=== PATIENT | male | born 1955 | race Caucasian/White ===

== ENCOUNTER 2017-10-28 20:59 | Inpatient (IN) | payer OTHER, SELFPAY ==
[2017-10-28 21:00] VITALS: BP 136/75; PULSE 80; RESP 17; TEMP 36.4; O2SAT 98; BMI 26.8
[2017-10-28 21:16] LABS: Bedside Glucose > 500 mg/dL (70-110)
--- NOTE | 2017-10-28 21:22 | EKG12_ITS ---
Test Reason : TACHYCARDIA Blood Pressure : / mmHG Vent. Rate : 140 BPM Atrial Rate : 141 BPM P-R Int : 000 ms QRS Dur : 096 ms QT Int : 264 ms P-R-T Axes : 000 087 175 degrees QTc Int : [address] & T wave abnormality, consider anterolateral ischemia Abnormal ECG Confirmed by KEEGAN KNIGHT, KIM ([id number]), news videotape editor JOSHUA PATEL ([id number]) on 11/01/2017 8:33:20 AM Referred By: FREDRICK Confirmed By:KIM ALLISON MD
--- NOTE | 2017-10-28 21:23 | ED.RN ---
NO OLD EKG'S IN MUSE.
--- NOTE | 2017-10-28 21:27 | ED.DCSUM_ITS ---
- ER Visit Summary Date of Service: 10/28/17 Chief Complaint: Elevated blood sugar History of Present Illness: The patient is a 61 M who reports having routine blood work drawn at work a couple weeks ago. His blood sugar returned at greater than 600. Patient states he has for the last 2 weeks try to find a doctor. He was accepted by Dr. Hammer but cannot be seen in the office for 3 more weeks. Patient reports generalized fatigue with increasing thirst over the past several months. Patient denies chest pain or shortness of breath. He denies abdominal pain. Physical Examination: Blood pressure is 136/75, temperature 97.5, heart rate 80 , respiratory rate 17, pulse ox 98% on room air. Patient sitting upright in bed no acute distress. Head neck examination reveals dry mucous membranes. Heart is tachycardic and irregular. Lung sounds are clear. Abdomen is soft and nontender. Neuro exam reveals no focal neurologic deficits with good strength and sensation throughout. Test Results: EKG is atrial flutter with a rate of 140. Lateral T-wave inversions are noted. CBC is unremarkable. Chemistry studies reveal glucose of 563 with a sodium of 131. Anion gap is 18. BUN is 21. Urinalysis shows thousand of glucose of 150 ketones. Troponin is less than 0.02. Serum acetone is negative. Hemoglobin A1c returns at 14.2. Emergency Department Course and Treatment: Patient was placed on threat monitoring analyst in the room and has variable heart rates between 140 and 160. Patient was ordered 2 L of IV fluids. 5 mg of IV Lopressor was given. Heart rate is now ranging from 80s-120. Blood pressure has been stable. Patient be given a dose of Lovenox and will be admitted. Treatment Plan: Disposition: Admit Impression: 1. New onset diabetes with hyperglycemia 2. New onset A. fib/A flutter 3. A flutter RVR This note was generated with [employer] dictation software. It may contain incorrect words, spelling, and punctuation that were not noted in review of the chart prior to signing ED Disposition - Plan for ED Patient: Chief Complaint: Hyperglycemia Referrals: [facility] Doctor,Out of [NON-STAFF] -
[2017-10-28] MEDS: 0.9% Normal Saline 1,000 ML 1000 ML IV ×2 (21:31→23:00)
[2017-10-28] MEDS: Metoprolol Tartrate 5 MG/5 ML Vial IV (21:37)
[2017-10-28 21:42] LABS: Absolute Lymphocyte Count 0.86 X10^3/ul (0.83-4.51); Absolute Neutrophil Count 5.9 X10^3/uL (2.0-7.7); Basophil# 0.02 X10^3/uL; Basophil% 0.3 % (0-1); Eosinophil# 0.03 X10^3/uL; Eosinophils% 0.4 % (0-5); Hematocrit 42.8 % (40-54); Hemoglobin 14.7 g/dl (13.0-16.5); Lymphocyte # 0.86 X10^3/ul (4.0); Lymphocyte % 11.3 % (19-41); Mean Corp Hgb Conc 34.3 g/gl (32-36); Mean Corpuscular Hgb 34.8 pg (27.0-32.0); Mean Corpuscular Volume 101.2 fL (80-94); Mean Platelet Vol. 10.1 fl (6.2-12.0); Monocyte# 0.78 X10^3/uL; Monocyte% 10.3 % (0-10); Neutrophil # 5.86 X10^3/uL (2.7-7.7); POSITIVE COUNT NO; POSITIVE DIFFERENTIAL NO; POSITIVE MORPHOLOGY NO; Platelet Count 153 K/mm3 (150-450); RBC Distribution Width CV 13.5 % (11.6-14.6); RBC Distribution Width SD 50.2 fl (35.1-43.9); Red Blood Count 4.23 M/mm3 (4.6-6.2); White Blood Count 7.6 K/mm3 (4.4-11.0)
[2017-10-28 21:44] VITALS: BP 123/79; PULSE 107; RESP 23; O2SAT 98
[2017-10-28 22:02] LABS: Hemoglobin A1c 14.2 % (4.2-6.3)
[2017-10-28 22:09] VITALS: BP 106/75; PULSE 109; RESP 22; O2SAT 98
[2017-10-28 22:22] LABS: Bacteria 0 SEEN /hpf (None Seen); Mucous, Urine 0 SEEN /hpf (<or=2+); Red Blood Cells-Urine 0 SEEN /hpf (0-5); Squamous Epithelial Cells - UA 0 SEEN /hpf (0-5); White Blood Cells 0 SEEN /hpf (0-5)
[2017-10-28 22:24] LABS: Color, Urine Yellow (Yellow); Glucose, Dipstick 1000 mg/dl (Normal); Leukocyte Esterase-Dipstick Negative /ul (Negative); Nitrite-Dipstick Negative (Negative); Occult Blood-Urine Negative /ul (Negative); Protein-Dipstick 30 mg/dl (Negative); Urine Bilirubin Dipstick Negative (Negative); Urine Clarity Sl. Cloudy (Clear); Urine Urobilinogen Normal (Normal)
[2017-10-28 22:31] LABS: Anion Gap 18 (5-15); BUN 21 mg/dL (7-18); Calcium,Total 9.2 mg/dL (8.5-10.1); Chloride 94 mmol/L (98-107); Creatinine, Serum 1.05 mg/dL (0.70-1.30); EST Glomerular Filtration Rate 76 mL/min (>60); Est Glom Filt Rate - Afr Amer 92 mL/min (>60); Estimated Creatinine Clearance 76.28 ml/min; Glucose 563 mg/dL (74-106); Potassium 4.8 mmol/L (3.5-5.1); Sodium Level 131 mmol/L (136-145)
[2017-10-28 22:39] LABS: Ketone-Dipstick 150 mg/dl (Negative)
--- NOTE | 2017-10-28 22:39 | ED.RN ---
notified Dr. Morley of ketones 150
[2017-10-28 22:46] VITALS: BP 113/81; PULSE 89; RESP 19; O2SAT 98
[2017-10-28] MEDS: Enoxaparin 100 MG/ML Syringe 80 MG SC (23:00)
[2017-10-28 23:02] VITALS: BP 117/80; PULSE 98; RESP 23; O2SAT 98
[2017-10-28 23:04] VITALS: BP 117/80; PULSE 108; RESP 22; O2SAT 99
--- NOTE | 2017-10-28 23:27 | PCM.HP.STD ---
Problem List (1) Atrial flutter with rapid ventricular response Status: Acute (2) Uncontrolled type 2 diabetes mellitus Status: Acute History of Present Illness Date of Admission: 10/28/17 Chief Complaint: Elevated blood sugar. The patient is a 61 year old M with no significant past medical history presented to the emergency room because of elevated blood sugar. Patient reported that he had blood work done around 2 weeks ago and he was found to have blood sugar of more than 600 mg/dL. He states that he has been trying to find a doctor and finally, he was accepted by Dr. Johnston but he will be seen in 3 weeks. His main complaint was generalized weakness that has been going on for almost 2 weeks, associated with poor appetite, weight loss and significant thirst and he has been urinating way more than his usual. He is not sure how much weight he lost during the last several months. He denied aggravating or relieving factors of his weakness and fatigue. He mentioned that some of his symptoms has been going on for the past several months. He denied chest pain or shortness of breath. Denied abdominal pain, nausea or vomiting. Denies fever or chills. He denied cough or sputum production. In the emergency room, he was found to be in atrial flutter and his heart rate was in the 140s, blood pressure stable condition pulse ox is 98% on 2 L. His routine blood work was remarkable for sodium of 131, bicarb is 19, blood sugar of 563, otherwise normal. His troponin was negative. His EKG revealed atrial flutter, rate was in the 140s without evidence of acute ischemic changes. His hemoglobin A1c was 14.2. His urine revealed significant glucosuria and ketones, negative for acute cystitis. His acetone level was negative. His ABG revealed pH of 7.36, PCO2 of 34 and PO2 of 84. He is being admitted for new onset type 2 diabetes mellitus with uncontrolled blood sugar as well as new onset atrial flutter with RVR. Past Medical History Allergies No Known Allergies Allergy (Verified 10/28/17 21:00) Home Medications: Ambulatory Orders Medication Instructions Recorded NK [NK] 10/28/17 Surgical History: no surgical history Psychiatric History: No pertinent psych hx Lives: With Family Smoking Status: Current every day smoker Tobacco Use: Cigarettes Alcohol: Rare Drugs: None - *Family History Maternal History Items: No pertinent history Paternal History Items: No pertinent history Review of Systems Constitutional: Reports: Anorexia, Weakness, Weight Change, Fatigue, - - Weight loss.. Denies: Chills, Fever Eyes: Denies: Blurred vision, Double vision, Drainage, Redness HEENT: Denies: Difficulty Hearing, Ear Pain, Eye Pain, Nasal Congestion, Sore Throat Cardiovascular: Denies: Chest Pain, Chest Pressure, Chest Tightness, Palpitations, Syncope Respiratory: Denies: Cough, Pleuritic Pain, Shortness of Breath, Sputum production, Wheezing Gastrointestinal: Denies: Abdominal Pain, Constipation, Diarrhea, Nausea, Vomiting Genitourinary: Reports: Frequency, Nocturia. Denies: Dysuria, Hematuria Musculoskeletal: Denies: Arm Pain, Back Pain, Foot Pain Skin: Reports: Dryness. Denies: Rash Neurological: Denies: Balance problems, Double vision, Change in Speech, Slurred speech, Confusion, Headaches, Incoordination, Numbness Psychiatric: Denies: Anxiety, Depression Endocrine: Denies: Change in Body Habitus, Heat/ Cold Intolerance, Polydipsia VTE Information - Inpt Only VTE Present on Admission: No VTE Mechan Device Prophylaxis: None VTE Pharm Prophylaxis ordered?: Yes Patient Problems: Active and Suspected Problems Atrial flutter with rapid ventricular response (Acute) Uncontrolled type 2 diabetes mellitus (Acute) - Physical Exam General: Alert, Oriented x3, Cooperative, No apparent distress HEENT: Atraumatic, PERRLA, EOMI Oral: No Gingival or Mucosal Lesions/ Ulcerations, Dry Mucosa Neck: Supple, No JVD, Negative Carotid Bruits, Trachea Midline, Thyroid Normal Size and Texture Lungs: Clear to auscultation, No rhonchi, No wheeze, No rales, Diminished Cardiovascular: Normal S1, Normal S2, No murmurs, PMI Normal, Irregular Rate, Tachycardic Abdomen: Bowel Sounds Present, Soft, Non Tender, Non-Distended, No Hepato-splenomegaly Extremities: No clubbing, No cyanosis, No edema Skin: No rashes, No breakdown Lymphatic: No Cervical, Supraclavicular, or Inguinal Adenopathy Neurological: Cranial nerves II-XII grossly intact, Motor Exam 5/5 strength throughout Psych/Mental Status: Normal Affect, Appropriate, Alert and oriented to time, place, person, mood and affect Vital Signs Temp Pulse Resp BP Pulse Ox 97.5 F L 108 H 22 H 117/80 99 10/28/17 21:00 10/28/17 23:04 10/28/17 23:04 10/28/17 23:04 10/28/17 23:04 Laboratory Tests 10/28/17 10/28/17 10/28/17 Range/Units 22:10 21:30 21:30 WBC (4.4-11.0) K/mm3 RBC (4.6-6.2) M/mm3 Hgb (13.0-16.5) g/dl Hct (40-54) % MCV (80-94) fL MCH (27.0-32.0) pg MCHC (32-36) g/gl RDW (11.6-14.6) % RDW Differential (35.1-43.9) fl Plt Count (150-450) K/mm3 MPV (6.2-12.0) fl Immature Gran % (Auto) (0.0-0.9) % Neut % (Auto) (47-70) % Lymph % (Auto) (19-41) % [place] % (Auto) (0-10) % Eos % (Auto) (0-5) % Baso % (Auto) (0-1) % Absolute Neuts (auto) (2.0-7.7) X10^3/uL Absolute Lymphs (auto) (0.83-4.51) X10^3/ul Total Counted Sodium (136-145) mmol/L Potassium (3.5-5.1) mmol/L Chloride (98-107) mmol/L Carbon Dioxide (21.0-32.0) mmol/L Anion Gap (5-15) BUN (7-18) mg/dL Creatinine (0.70-1.30) mg/dL Estim Creat Clear Calc ml/min Est GFR (MDRD) Af Amer (>60) mL/min Est GFR (MDRD) Non-Af (>60) mL/min BUN/Creatinine Ratio (10-20) RATIO Glucose (74-106) mg/dL Hemoglobin A1c 14.2 H (4.2-6.3) % Calcium (8.5-10.1) mg/dL Troponin I (<0.06) ng/mL Urine Color Yellow (Yellow) Urine Clarity Sl. Cloudy (Clear) Urine pH 6.0 (5.0 - 8.0) Ur Specific [place] 1.020 (1.002-1.030) Urine Protein 30 H (Negative) mg/dl Urine Glucose (UA) 1000 H (Normal) mg/dl Urine Ketones 150 H (Negative) mg/dl Urine Occult Blood Negative (Negative) /ul Urine Nitrite Negative (Negative) Urine Bilirubin Negative (Negative) mg/dL Urine Urobilinogen Normal (Normal) mg/dl Ur Leukocyte Esterase Negative (Negative) /ul Urine RBC 0 SEEN (0-5) /hpf Urine WBC 0 SEEN (0-5) /hpf Ur Squamous Epith Cells 0 SEEN (0-5) /hpf Urine Bacteria 0 SEEN (None Seen) /hpf Urine Mucus 0 SEEN (<or=2+) /hpf Acetone Level NEGATIVE (NEG) POC Glucose (70-110) mg/dL 10/28/17 10/28/17 10/28/17 Range/Units 21:30 21:30 21:06 WBC 7.6 (4.4-11.0) K/mm3 RBC 4.23 L (4.6-6.2) M/mm3 Hgb 14.7 (13.0-16.5) g/dl Hct 42.8 (40-54) % MCV 101.2 H (80-94) fL MCH 34.8 H (27.0-32.0) pg MCHC 34.3 (32-36) g/gl RDW 13.5 (11.6-14.6) % RDW Differential 50.2 H (35.1-43.9) fl Plt Count 153 (150-450) K/mm3 MPV 10.1 (6.2-12.0) fl Immature Gran % (Auto) 0.700 (0.0-0.9) % Neut % (Auto) 77.0 H (47-70) % Lymph % (Auto) 11.3 L (19-41) % [place] % (Auto) 10.3 H (0-10) % Eos % (Auto) 0.4 (0-5) % Baso % (Auto) 0.3 (0-1) % Absolute Neuts (auto) 5.9 (2.0-7.7) X10^3/uL Absolute Lymphs (auto) 0.86 (0.83-4.51) X10^3/ul Total Counted Not Reportable Sodium 131 L (136-145) mmol/L Potassium 4.8 (3.5-5.1) mmol/L Chloride 94 L (98-107) mmol/L Carbon Dioxide 19.0 L (21.0-32.0) mmol/L Anion Gap 18 H (5-15) BUN 21 H (7-18) mg/dL Creatinine 1.05 (0.70-1.30) mg/dL Estim Creat Clear Calc 76.28 ml/min Est GFR (MDRD) Af Amer 92 (>60) mL/min Est GFR (MDRD) Non-Af 76 (>60) mL/min BUN/Creatinine Ratio 20.0 (10-20) RATIO Glucose 563 H* (74-106) mg/dL Hemoglobin A1c (4.2-6.3) % Calcium 9.2 (8.5-10.1) mg/dL Troponin I < 0.02 (<0.06) ng/mL Urine Color (Yellow) Urine Clarity (Clear) Urine pH (5.0 - 8.0) Ur Specific [place] (1.002-1.030) Urine Protein (Negative) mg/dl Urine Glucose (UA) (Normal) mg/dl Urine Ketones (Negative) mg/dl Urine Occult Blood (Negative) /ul Urine Nitrite (Negative) Urine Bilirubin (Negative) mg/dL Urine Urobilinogen (Normal) mg/dl Ur Leukocyte Esterase (Negative) /ul Urine RBC (0-5) /hpf Urine WBC (0-5) /hpf Ur Squamous Epith Cells (0-5) /hpf Urine Bacteria (None Seen) /hpf Urine Mucus (<or=2+) /hpf Acetone Level (NEG) POC Glucose > 500 H* (70-110) mg/dL Assessment/Plan Active and Suspected Problems Atrial flutter with rapid ventricular response (Acute) Uncontrolled type 2 diabetes mellitus (Acute) This is a 61 years old male patient presented to the emergency room because of elevated blood sugar in addition to symptoms of weakness, thirst, polyuria and weight loss that has been going on for several months and he was found to have highly elevated blood sugar as well as atrial flutter with RVR. #1 newly diagnosed type 2 diabetes mellitus/hyperglycemia: Without evidence of acute DKA. Blood sugar has been more than 500. His serum bicarbonate was 19, acetone was negative. ABG revealed normal pH. At this time, no evidence of acute DKA. Plan: Admit to PCU, cardiac monitoring, ADA diet, Accu-Cheks every 6 hours, start Levemir insulin 10 units twice daily, start glimepiride, insulin sliding scale, nutrition consult for diabetic education PT OT evaluation and treatment. #2 new onset atrial flutter with RVR: Initially, heart rate has been in the 140s. He received 1 dose of IV metoprolol. Rate came down to 90s but has been fluctuating up to 130s. Blood pressure stable. Troponin is negative. His KGU2-BV0-BPFa score is 1, he is at low to moderate risk for stroke and he could be treated either way with either antiplatelets or anticoagulants. Patient denies any cardiac history. Plan: Start IV Cardizem drip, 2D echocardiogram, TSH, check serum magnesium, cardiology consult, full dose aspirin 325 mg p.o. daily. #3 hyponatremia: This is likely pseudohyponatremia secondary to hyperglycemia. Corrected sodium for glucose is 138 mg/dL. Expect sodium to correct with correction of hyperglycemia. #4 DVT prophylaxis: Subcu Lovenox. This note was generated with [employer] dictation software. It may contain incorrect words, spelling, and punctuation that were not noted in checking the note before signing. Code Visit Inpatient E&M: 37743 Init Hosp L3
[2017-10-28 23:46] LABS: Allen Test POS; Base Excess -6 mmol/L (-2 to +2); Bicarbonate 19.3 mmol/L (22-26); Blood Gas Specimen Type ART; O2 Delivery Device Room Air; PO2 84 mmHG (75-100); SITE L Radial; SO2 96 % (95-99); Time Given 2337; Total Carbon Dioxide 20 mmol/L; pCO2 34.5 mmHg (35-45); pH 7.36 (7.35-7.45)
--- NOTE | 2017-10-28 23:54 | ECHOD_ITS ---
Reason For Study: Afib, Aflutter Procedure This was a 2D Doppler, Color Flow transthoracic echocardiogram. Exam performed portable in patient room. Left Ventricle Normal LV size. Moderately severe global left ventricular systolic dysfunction. The estimated ejection fraction is 30 %. No regional wall motion abnormalities noted. There is moderate to severe global hypokinesis of the left ventricle. Right Ventricle Normal RV size. Normal systolic function. Atria The left atrium is severely enlarged. The right atrium is moderately enlarged. Mitral Valve Normal mitral valve. Mild (1+) mitral valve insufficiency. Tricuspid Valve Normal tricuspid valve. Mild tricuspid valve insufficiency. Aortic Valve Trisinus/trileaflet aortic valve. Mild focal aortic valve calcification. Pulmonic Valve Normal pulmonic valve. Great Vessels Normal aortic root. The pulmonary artery is normal size. Normal inferior vena cava. Pericardium/Pleural No pericardial effusion. MMode/2D Measurements & Calculations LVIDd: 4.9 cm IVSd: 1.1 cm Ao root diam: 3.1 cm LVIDs: 4.0 cm LVPWd: 0.93 cm LA dimension: 5.4 cm RVDd: 3.7 cm FS: 18.3 % LAV(MOD-bp): 109.7 ml EDV(MOD-sp4): 136.8 ml SV(MOD-sp4): 65.4 ml LAV(MOD-bp) Indexed: 54.2 ml/m2 ESV(MOD-sp4): 71.4 ml LAV(MOD-sp2): 102.6 ml EF(MOD-sp4): 47.8 % LAV(MOD-sp4): 101.1 ml LA A4 area: 31.2 cm2 RA A4 area: 23.8 cm2 Doppler Measurements & Calculations MV E max tripp: 72.8 cm/sec Lat Peak E' Tripp: 13.5 cm/sec Med Peak E' Tripp: 8.6 cm/sec E/E' lat: 5.4 E/E' med: 8.4 Ao V2 max: 160.1 cm/sec LV V1 max: 112.6 cm/sec PA V2 max: 66.9 cm/sec Ao max P.3 mmHg LV V1 max P.1 mmHg Ao V2 mean: 124.5 cm/sec Ao mean P.8 mmHg Ao V2 VTI: 30.7 cm TR max tripp: 191.7 cm/sec TR max P.7 mmHg Interpretation Summary Normal LV size. Moderately severe global left ventricular systolic dysfunction. The estimated ejection fraction is 30 %. The left atrium is severely enlarged. The right atrium is moderately enlarged. Structurally normal valves. Ordering Physician: Aidan Marrero Referring Physician: Lanre Hammer Performed By: Clare Rodriguez, DAYANA, RVT
[2017-10-29] VITALS (37 sets, daily range): BP systolic 90–133; BP diastolic 7–88; PULSE 61–140; RESP 16–23; TEMP 36.6–37.1; O2SAT 90–99; BMI 25.0; BMI 25.1
[2017-10-29 00:43] LABS: AST(SGOT) 36 U/L (15-37); Alanine Aminotransfer ALT/SGPT 59 U/L (16-61); Albumin, Serum 3.5 g/dL (3.2-5.0); Alkaline Phosphatase 99 U/L (45-117); Bilirubin, Direct 0.17 mg/dL (0.00-0.30); Globulin 3.2 g/dL (2.2-4.2); Protein, Total 6.7 g/dL (6.4-8.2); Thyroid Stim Hormone (TSH) 4.19 uIU/mL (0.358-3.74)
[2017-10-29] MEDS: 0.9% Normal Saline 1,000 ML 100 ML IV ×3 (00:50→20:26)
[2017-10-29 05:46] LABS: Bedside Glucose 379 mg/dL (70-110)
[2017-10-29] MEDS: Enoxaparin 40 MG/0.4 ML Syringe SC (05:56)
[2017-10-29 06:06] LABS: Bedside Glucose 285 mg/dL (70-110)
[2017-10-29 07:50] LABS: Anion Gap 16 (5-15); BUN 10 mg/dL (7-18); Calcium,Total 7.6 mg/dL (8.5-10.1); Chloride 101 mmol/L (98-107); Cholesterol 124 mg/dL (200); Creatinine, Serum 0.71 mg/dL (0.70-1.30); EST Glomerular Filtration Rate 119 mL/min (>60); Est Glom Filt Rate - Afr Amer 144 mL/min (>60); Estimated Creatinine Clearance 112.81 ml/min; Glucose 279 mg/dL (74-106); High Density Lipoprotein 40 mg/dL; Potassium 3.6 mmol/L (3.5-5.1); Sodium Level 138 mmol/L (136-145); Triglycerides 131 mg/dL; Very Low Density Lipoprotein 26 mg/dL (5-40)
[2017-10-29] MEDS: Glimepiride 4 MG Tablet PO (09:00)
[2017-10-29] MEDS: Aspirin 325 MG Tablet PO (09:02)
--- NOTE | 2017-10-29 09:50 | PN_ITS ---
Patient Problems: Active and Suspected Problems Atrial flutter with rapid ventricular response (Acute) Uncontrolled type 2 diabetes mellitus (Acute) Subjective: Patient was seen and examined. Denies any active complains. On cardizem drip, HR still in the 100s. Admitted with hyperglycemia; newly diagnosed DM and Atrial flutter with RVR. Denies any fever or chills or SOB. Objective: Physical Exam General: Alert, Oriented x3, Cooperative, No apparent distress, not pale, not jaundiced, well hydrated HEENT: Atraumatic, PERRLA, EOMI Oral: No Gingival or Mucosal Lesions/ Ulcerations, moist oral mMucosa Neck: Supple, No JVD, Negative Carotid Bruits, Trachea Midline, Thyroid Normal Size and Texture Lungs: Clear to auscultation, No rhonchi, No wheeze, No rales, Diminished Cardiovascular: Normal S1, Normal S2, No murmurs, PMI Normal, Irregular Rate, Tachycardic Abdomen: Bowel Sounds Present, Soft, Non Tender, Non-Distended, No Hepato- splenomegaly Extremities: No clubbing, No cyanosis, No edema Skin: No rashes, No breakdown Lymphatic: No Cervical, Supraclavicular, or Inguinal Adenopathy Neurological: Cranial nerves II-XII grossly intact, Motor Exam 5/5 strength throughout Psych/Mental Status: Normal Affect, Appropriate, Alert and oriented to time, place, person, mood and affect Vitals/I&O's: Vital Signs Temp Pulse Resp BP Pulse Ox 97.8 F 140 H 18 113/73 93 10/29/17 09:00 10/29/17 09:39 10/29/17 09:00 10/29/17 09:00 10/29/17 09:00 Oxygen Delivery Method Room Air Weight: 79.3 kg Body Mass Index (BMI) 25.0 Intake and Output for Last 24 Hours 10/27/17 10/28/17 10/29/17 23:59 23:59 23:59 Intake Total 1490 / 1490 Output Total 1350 / 1350 Balance 140 / 140 Laboratory Results 10/28/17 23:38: Specimen Type ART, Sample Site L Radial, pH 7.36, Bicarbonate Actual 19.3 L, POC Total CO2 20, Base Excess -6 L, O2 Saturation 96, ABG pCO2 34.5 L, ABG pO2 84, Abdulaziz Test POS, O2 Delivery Device Room Air, Blood Gas Notified Whom ED MD, Blood Gas Notified Time 2997 10/29/17 00:56: POC Glucose 379 H 10/29/17 01:20: Troponin I < 0.02 10/29/17 05:20: Sodium 138, Potassium 3.6, Chloride 101, Carbon Dioxide 21.0, Anion Gap 16 H, BUN 10, Creatinine 0.71, Estim Creat Clear Calc 112.81, Est GFR (MDRD) Af Amer 144, Est GFR (MDRD) Non-Af 119, BUN/Creatinine Ratio 14.0, Glucose 279 H, Calcium 7.6 L, Triglycerides 131, Cholesterol 124, LDL Cholesterol 58, VLDL Cholesterol 26, HDL Cholesterol 40 10/29/17 05:20: Troponin I < 0.02 10/29/17 05:50: POC Glucose 285 H Current Medications Acetaminophen (Tylenol) 650 mg PO Q6H PRN PRN PRN Reason: Mild Pain (scale 0-3)/T>100.7 Aspirin (Aspirin) 325 mg PO DAILY@0800 [facility] Last Admin: 10/29/17 09:02 Dose: 325 mg Dextrose (D50w Syringe) 0 gm IV X1 PRN; Protocol PRN Reason: Hypoglycemia Docusate Sodium (Colace) 200 mg PO BID PRN PRN PRN Reason: Constipation Enoxaparin Sodium (Lovenox) 40 mg SC DAILY@0600 [facility] Last Admin: 10/29/17 05:56 Dose: 40 mg Glimepiride (Amaryl) 4 mg PO DAILY@0800 [facility] Last Admin: 10/29/17 09:00 Dose: 4 mg Glucagon () 1 mg IM .X1 PRN PRN Reason: Hypoglycemia Sodium Chloride () 1,000 mls @ 100 mls/hr IV .Q10H [facility] Last Admin: 10/29/17 09:45 Dose: 100 mls/hr Diltiazem HCl 125 mg/ Dextrose 125 mls @ 5 mls/hr CONT INF .Q25H [facility] PRN Reason: 5 MG/HR Last Admin: 10/29/17 00:31 Dose: 5 mls/hr Insulin Aspart (Novolog Flexpen (Bkc)) 0 units SC Q6 [facility] PRN Reason: Protocol Last Admin: 10/29/17 05:55 Dose: 6 units Insulin Detemir (Levemir (Bkc)) 10 units SC BID [facility] Last Admin: 10/29/17 09:42 Dose: 10 units Ondansetron HCl (Zofran) 4 mg IV Q8H PRN PRN PRN Reason: Nausea Sodium Chloride () 5 - 30 ml IV UD PRN PRN Reason: SALINE FLUSH Zolpidem Tartrate (Ambien (Generic)) 5 mg PO QHS PRN PRN PRN Reason: INSOMNIA Medical Necessity - Tobacco Use Smoking Status: Current every day smoker Tobacco Use: Cigarettes Assessment/Plan Active and Suspected Problems Atrial flutter with rapid ventricular response (Acute) Uncontrolled type 2 diabetes mellitus (Acute) 61 years old male admitted on 10/28/17 with weakness, thirst, polyuria and weight loss that has been going on for several months and he was found to have highly elevated blood sugar, newly diagnosed DM, and atrial flutter with RVR. 1. Newly diagnosed type 2 diabetes mellitus, HbA1c 14.2, IV fluids, started on Levemir 10 units twice daily with insulin sliding scale, will continue to monitor blood sugars with Accu-Cheks before meals at bedtime, repeat labs in a.m. 2. New onset atrial flutter with RVR, not rate controlled, on Cardizem drip, cardiology consulted, initiate treatment of her low, 2D echo done, would wean off Cardizem drip, Eliquis started. 3. Hypothyroidism, TSH elevated at 4.19, will check free T4, FT3 4. Hyponatremia, pseudohyponatremia secondary to hyperglycemia, resolved. 5. Elevated MCV, likely related to TSH, will check folic acid, Vitamin b12 6. DVT prophylaxis - Lovenox SC. Code Visit Inpatient E&M: 01173 Subs Hosp L3
--- NOTE | 2017-10-29 11:00 | CASEMGMT ---
RN AISHA Face to Face with patient for initial transition planning/care coordination assessment. RN CM introduced self and role at [facility]. Patient sitting in chair, alert and oriented. Patient willing to participate in assessment and is able to answer all questions appropriately. Care providers, pharmacy, and demographics verified. See link attached. Patient wishes to discharge home, denies need for home health at this time. Patient states that he does not take any medications at home. Patient states he has no further needs or concerns at this time. SW referral made to Jae Stahl in regards to new diagnosis of diabetes. CM to follow for discharge planning needs that may arise. Disposition Plan: Patient to discharge home with follow-up plans in place.
[2017-10-29 11:46] LABS: Bedside Glucose 325 mg/dL (70-110)
--- NOTE | 2017-10-29 11:58 | CON.PCM_ITS ---
Reason for Consult Date of Consultation: 10/29/17 Reason for Consultation: Irregular heartbeat. History of Present Illness: The patient is a 61 year old M with no significant past medical history presented to the emergency room because of elevated blood sugar. Patient reported that he had blood work done around 2 weeks ago and he was found to have blood sugar of more than 600 mg/dL. He states that he has been trying to find a doctor and finally, he was accepted by Dr. Johnston but he will be seen in 3 weeks. His main complaint was generalized weakness that has been going on for almost 2 weeks, associated with poor appetite, weight loss and significant thirst and he has been urinating way more than his usual. He is not sure how much weight he lost during the last several months. He denied aggravating or relieving factors of his weakness and fatigue. He mentioned that some of his symptoms has been going on for the past several months. He denied chest pain or shortness of breath. Denied abdominal pain, nausea or vomiting. Denies fever or chills. He denied cough or sputum production. In the emergency room, he was found to be in atrial flutter and his heart rate was in the 140s, blood pressure stable condition pulse ox is 98% on 2 L. His routine blood work was remarkable for sodium of 131, bicarb is 19, blood sugar of 563, otherwise normal. His troponin was negative. His EKG revealed atrial flutter, rate was in the 140s without evidence of acute ischemic changes. His hemoglobin A1c was 14.2. He was admitted to the telemetry unit and cardiology was consulted due to his elevated heart rate. He denies any dizziness or diaphoresis no near syncope or syncope and no palpitations. Past Medical History Allergies/Adverse Reactions: Allergies No Known Allergies Allergy (Verified 10/28/17 21:00) Home Medications: Ambulatory Orders Medication Instructions Recorded Naproxen Sodium [Aleve] 220 mg PO 10/29/17 Surgical History: no surgical history Psychiatric History: No pertinent psych hx - *Family History Maternal History Items: No pertinent history Paternal History Items: No pertinent history Lives: With Family Smoking Status: Current every day smoker Tobacco Use: Cigarettes Alcohol: Rare Drugs: None Review of Systems - Review of Systems General: Reports: Fatigue, Weakness. Denies: Fever, Night Sweats Cardiovascular: Denies: Chest Discomfort, Shortness of Breath, Orthopnea, PND, Peripheral Edema, Palpitations, Lightheadedness, Dizziness, Near Syncope, Syncope Respiratory: Denies: Cough, Sputum Production, Hemoptysis Gastrointestinal: Denies: Hematemesis, Hematochezia, Melena Genitourinary: Denies: Dysuria, Hematuria Skin: Denies: Rash Subjectve: Pleasant gentleman in no apparent distress Objective: Vital Signs Temp Pulse Resp BP Pulse Ox 98.1 F 100 22 H 115/61 96 10/29/17 11:00 10/29/17 11:09 10/29/17 11:00 10/29/17 11:00 10/29/17 11:00 Oxygen Delivery Method Room Air Weight: 174 lb 13.225 oz Body Mass Index (BMI) 25.0 Intake and Output for Last 24 Hours 10/27/17 10/28/17 10/29/17 23:59 23:59 23:59 Intake Total 2840 / 2840 Output Total 1775 / 1775 Balance 1065 / 1065 General: Awake, Alert, Oriented x 3 HEENT: PERRL, EOMI, Sclera Non Icteric Neck: Supple, Good ROM, No Lymph Node Enlargement Lungs: Clear to auscultation Cardiovascular: Irregular Rhythm, Normal S1, Normal S2, No Murmurs, No Rubs, No Gallops Vascular: No Carotid Bruits, Normal Femoral Pulses, Normal Radial Pulses, Normal Dorsalis Pedal Pulse, Normal Posterior Tibial Pulses Abdomen: Bowel Sounds Present, Soft, Non Tender, No HSM, No Organomegaly Extremities: No Cyanosis, No Clubbing, No edema Neurological: No Focal Motor or Sensory Deficit 10/28/17 23:38: pH 7.36, Bicarbonate Actual 19.3 L, POC Total CO2 20, Base Excess -6 L, O2 Saturation 96, ABG pCO2 34.5 L, ABG pO2 84, Abdulaziz Test POS 10/29/17 01:20: Troponin I < 0.02 10/29/17 05:20: Sodium 138, Potassium 3.6, Chloride 101, Carbon Dioxide 21.0, Anion Gap 16 H, BUN 10, Creatinine 0.71, Est GFR (MDRD) Af Amer 144, Est GFR ( MDRD) Non-Af 119, BUN/Creatinine Ratio 14.0, Glucose 279 H, Calcium 7.6 L, Triglycerides 131, Cholesterol 124, LDL Cholesterol 58, VLDL Cholesterol 26, HDL Cholesterol 40 10/29/17 05:20: Troponin I < 0.02 Rhythm: EKG: Atrial fibrillation flutter with a rapid ventricular response rate Assessment/Plan 1. Atrial flutter with rapid ventricular response rate-duration unknown He presents with severe hyperglycemia and is noted to have atrial fibrillation flutter with rapid ventricular response rate. He does have a chads vas score of 1. My recommendation however at the present time would be for him to be anticoagulated obtain an echocardiogram to assess his left ventricular function. Hopefully after his blood sugar is under control and his heart rate is under control he should be given an attempt at DC cardioversion. It is for this reason that I would anticoagulate him. I will discuss this with him further over the next 24 hours. Oral metoprolol can be initiated I will wean off the intravenous Cardizem We will read and report echocardiogram Thank you for allowing me to participate in the care of your patient. Please don't hesitate to call if any issues arise
--- NOTE | 2017-10-29 12:12 | CASEMGMT ---
SW met w/pt briefly in regard to new diagnosis of diabetes, offered support. SW encouraged pt to ask a lot of questions if he is not certain of something. Pt at this time seems to be managing, did make pt aware if he does find himself frustrated or upset about the new diagnosis, counseling can help. Pt states understanding. Otherwise, no further social service needs anticipated. DAVID Hernandez, CVICU NURSE
[2017-10-29] MEDS: Metoprolol Tartrate 50 MG Tablet PO ×2 (13:56→22:08)
[2017-10-29 15:57] LABS: Free T3 1.2 pg/mL (2.18-3.98); T4 Free Direct 0.86 ng/dL (0.76-1.46)
[2017-10-29 16:25] LABS: Bedside Glucose 235 mg/dL (70-110)
[2017-10-29] MEDS: APIXABAN 5 MG TABLET PO (22:08)
[2017-10-29 23:05] LABS: Bedside Glucose 281 mg/dL (70-110)
[2017-10-30] VITALS (16 sets, daily range): BP systolic 104–135; BP diastolic 68–74; PULSE 77–122; RESP 16–18; TEMP 36.6–36.8; O2SAT 91–98
[2017-10-30 06:13] LABS: Absolute Lymphocyte Count 1.35 X10^3/ul (0.83-4.51); Absolute Neutrophil Count 3.9 X10^3/uL (2.0-7.7); Basophil# 0.02 X10^3/uL; Basophil% 0.3 % (0-1); Eosinophil# 0.09 X10^3/uL; Eosinophils% 1.5 % (0-5); Hematocrit 42.1 % (40-54); Hemoglobin 14.6 g/dl (13.0-16.5); Lymphocyte # 1.35 X10^3/ul (4.0); Lymphocyte % 22.9 % (19-41); Mean Corp Hgb Conc 34.7 g/gl (32-36); Mean Corpuscular Hgb 34.5 pg (27.0-32.0); Mean Corpuscular Volume 99.5 fL (80-94); Mean Platelet Vol. 10.1 fl (6.2-12.0); Monocyte# 0.53 X10^3/uL; Neutrophil # 3.86 X10^3/uL (2.7-7.7); Neutrophil % 65.6 % (47-70); Platelet Count 142 K/mm3 (150-450); RBC Distribution Width SD 46.6 fl (35.1-43.9); Red Blood Count 4.23 M/mm3 (4.6-6.2); White Blood Count 5.9 K/mm3 (4.4-11.0)
[2017-10-30 06:14] LABS: POSITIVE COUNT NO; POSITIVE DIFFERENTIAL NO; POSITIVE MORPHOLOGY NO
[2017-10-30 06:35] LABS: Anion Gap 9 (5-15); BUN 5 mg/dL (7-18); BUN/Creat Ratio 9.9 RATIO (10-20); Calcium,Total 7.6 mg/dL (8.5-10.1); Chloride 102 mmol/L (98-107); EST Glomerular Filtration Rate 178 mL/min (>60); Est Glom Filt Rate - Afr Amer 215 mL/min (>60); Estimated Creatinine Clearance 158.17 ml/min; Glucose 109 mg/dL (74-106); Sodium Level 141 mmol/L (136-145)
[2017-10-30 07:00] LABS: Bedside Glucose 104 mg/dL (70-110)
[2017-10-30] MEDS: Metoprolol Tartrate 50 MG Tablet PO (08:18)
[2017-10-30] MEDS: APIXABAN 5 MG TABLET PO ×2 (08:19→21:28)
[2017-10-30] MEDS: Glimepiride 4 MG Tablet PO (08:19)
--- NOTE | 2017-10-30 09:15 | ECHOTEE_ITS ---
Reason For Study: Afib, Aflutter Medication Cetacaine Topical [place] given X3 orally. Versed 1 mg given slow IVP. Fentanyl 50 mcg given slow IVP. Performed a rapid injection of agitated mix of 9 cc saline and 1cc air to assess for atrial septal defect. Left Ventricle Normal LV size. Moderately severe global left ventricular systolic dysfunction. The estimated ejection fraction is 20 %. There is severe global hypokinesis of the left ventricle. Right Ventricle Normal RV size. Normal systolic function. Atria Bubble contrast study negative for right to left interatrial shunt. The left atrium is severely enlarged. There is severe sponatenous contrast in the left atrium. Appendage thrombus of the left atrium. The right atrium is mildly enlarged. Mitral Valve Normal mitral valve. Mild (1+) eccentric mitral valve insufficiency. Tricuspid Valve Normal tricuspid valve. Aortic Valve Normal aortic valve. Trisinus/trileaflet aortic valve. Pulmonic Valve Normal pulmonic valve. Vessels Normal aortic root. The pulmonary artery is normal size. Pericardium No pericardial effusion. Interpretation Summary Normal LV size. Moderately severe global left ventricular systolic dysfunction. The estimated ejection fraction is 20 %. There is severe global hypokinesis of the left ventricle. The left atrium is severely enlarged. There is severe sponatenous contrast in the left atrium. Appendage thrombus of the left atrium. Ordering Physician: Lenny Rao Referring Physician: Lanre Hammer Performed By: Clare Rodriguez, RDCS, RVT
--- NOTE | 2017-10-30 09:16 | PCM.PN.CARD ---
Subjectve: Patient seen and evaluated. Remains asymptomatic doing well otherwise. Objective: Vital Signs Temp Pulse Resp BP Pulse Ox 98.0 F 107 H 18 115/70 95 10/30/17 08:17 10/30/17 08:18 10/30/17 08:29 10/30/17 08:17 10/30/17 08:17 Oxygen Delivery Method Room Air Weight: 174 lb 13.225 oz Body Mass Index (BMI) 25.0 Intake and Output for Last 24 Hours 10/28/17 10/29/17 10/30/17 23:59 23:59 23:59 Intake Total 3704 / 3704 1893.2 / 1893.2 Output Total 2275 / 2275 2650 / 2650 Balance 1429 / 1429 -756.8 / -756.8 General: Awake, Alert, Oriented x 3 HEENT: PERRL, EOMI, Sclera Non Icteric Neck: Supple, Good ROM, No Lymph Node Enlargement Lungs: Clear to auscultation Cardiovascular: Regular Rhythm, Normal S1, Normal S2, No Murmurs, No Rubs, No Gallops Vascular: No Carotid Bruits, Normal Femoral Pulses, Normal Radial Pulses, Normal Dorsalis Pedal Pulse, Normal Posterior Tibial Pulses Abdomen: Bowel Sounds Present, Soft, Non Tender, No HSM, No Organomegaly Extremities: No Cyanosis, No Clubbing, No edema Neurological: No Focal Motor or Sensory Deficit 10/29/17 11:35: Troponin I < 0.02 10/30/17 05:50: WBC 5.9, RBC 4.23 L, Hgb 14.6, Hct 42.1, MCV 99.5 H, MCH 34.5 H, MCHC 34.7, RDW 13.0, RDW Differential 46.6 H, Plt Count 142 L, MPV 10.1, Immature Gran % (Auto) 0.700, Neut % (Auto) 65.6, Lymph % (Auto) 22.9, [place] % (Auto) 9.0, Eos % (Auto) 1.5, Baso % (Auto) 0.3, Absolute Neuts (auto) 3.9, Total Counted Not Reportable 10/30/17 05:50: Sodium 141, Potassium 3.0 L, Chloride 102, Carbon Dioxide 30.0, Anion Gap 9, BUN 5 L, Creatinine 0.50 L, Est GFR (MDRD) Af Amer 215, Est GFR (MDRD) Non-Af 178, BUN/Creatinine Ratio 9.9 L, Glucose 109 H, Calcium 7.6 L Rhythm: EKG: ECHO: Stress Test: Cardiac Cath: PCI: CT Surgery: Holter monitor: EPS: PPM: CXR: Chest CT Scan: Medical Necessity - Tobacco Use Smoking Status: Current every day smoker Tobacco Use: Cigarettes Assessment/Plan 1. Atrial flutter with rapid ventricular response rate-duration unknown He presents with severe hyperglycemia and is noted to have atrial fibrillation flutter with rapid ventricular response rate. He does have a chads vas score of 1. My recommendation however at the present time would be for him to be anticoagulated obtain an trans-echocardiogram to assess his left atrial appendage. His echocardiogram had demonstrated globally reduced left ventricular systolic function. I would recommend DC cardioversion if his ASHIA is without any appendage problems and then reecho him in a few weeks. He will continue on the beta-maciej. I have discussed the above with him as well as the hospitalist and will be scheduled in a.m. Thank you for allowing me to participate in the care of your patient. Please don't hesitate to call if any issues arise
--- NOTE | 2017-10-30 09:19 | PN.CARD_ITS ---
Subjectve: Patient seen and evaluated. Remains asymptomatic doing well otherwise. Objective: Vital Signs Temp Pulse Resp BP Pulse Ox 98.0 F 107 H 18 115/70 95 10/30/17 08:17 10/30/17 08:18 10/30/17 08:29 10/30/17 08:17 10/30/17 08:17 Oxygen Delivery Method Room Air Weight: 174 lb 13.225 oz Body Mass Index (BMI) 25.0 Intake and Output for Last 24 Hours 10/28/17 10/29/17 10/30/17 23:59 23:59 23:59 Intake Total 3704 / 3704 1893.2 / 1893.2 Output Total 2275 / 2275 2650 / 2650 Balance 1429 / 1429 -756.8 / -756.8 General: Awake, Alert, Oriented x 3 HEENT: PERRL, EOMI, Sclera Non Icteric Neck: Supple, Good ROM, No Lymph Node Enlargement Lungs: Clear to auscultation Cardiovascular: Regular Rhythm, Normal S1, Normal S2, No Murmurs, No Rubs, No Gallops Vascular: No Carotid Bruits, Normal Femoral Pulses, Normal Radial Pulses, Normal Dorsalis Pedal Pulse, Normal Posterior Tibial Pulses Abdomen: Bowel Sounds Present, Soft, Non Tender, No HSM, No Organomegaly Extremities: No Cyanosis, No Clubbing, No edema Neurological: No Focal Motor or Sensory Deficit 10/29/17 11:35: Troponin I < 0.02 10/30/17 05:50: WBC 5.9, RBC 4.23 L, Hgb 14.6, Hct 42.1, MCV 99.5 H, MCH 34.5 H , MCHC 34.7, RDW 13.0, RDW Differential 46.6 H, Plt Count 142 L, MPV 10.1, Immature Gran % (Auto) 0.700, Neut % (Auto) 65.6, Lymph % (Auto) 22.9, [place] % ( Auto) 9.0, Eos % (Auto) 1.5, Baso % (Auto) 0.3, Absolute Neuts (auto) 3.9, Total Counted Not Reportable 10/30/17 05:50: Sodium 141, Potassium 3.0 L, Chloride 102, Carbon Dioxide 30.0, Anion Gap 9, BUN 5 L, Creatinine 0.50 L, Est GFR (MDRD) Af Amer 215, Est GFR ( MDRD) Non-Af 178, BUN/Creatinine Ratio 9.9 L, Glucose 109 H, Calcium 7.6 L Rhythm: EKG: ECHO: Stress Test: Cardiac Cath: PCI: CT Surgery: Holter monitor: EPS: PPM: CXR: Chest CT Scan: Medical Necessity - Tobacco Use Smoking Status: Current every day smoker Tobacco Use: Cigarettes Assessment/Plan 1. Atrial flutter with rapid ventricular response rate-duration unknown He presents with severe hyperglycemia and is noted to have atrial fibrillation flutter with rapid ventricular response rate. He does have a chads vas score of 1. My recommendation however at the present time would be for him to be anticoagulated obtain an trans-echocardiogram to assess his left atrial appendage. His echocardiogram had demonstrated globally reduced left ventricular systolic function. I would recommend DC cardioversion if his ASHIA is without any appendage problems and then reecho him in a few weeks. He will continue on the beta-maciej. I have discussed the above with him as well as the hospitalist and will be scheduled in a.m. Thank you for allowing me to participate in the care of your patient. Please don't hesitate to call if any issues arise
[2017-10-30] MEDS: Metoprolol Tartrate 100 MG Tablet PO ×2 (09:33→21:29)
[2017-10-30 10:44] LABS: Magnesium 1.8 mg/dL (1.6-2.6)
[2017-10-30 11:45] LABS: Bedside Glucose 198 mg/dL (70-110)
--- NOTE | 2017-10-30 15:23 | PCM.PROGNOTE ---
<Hakeem Bean - Last Filed: 10/30/17 15:23> Patient Problems: Active and Suspected Problems Atrial flutter with rapid ventricular response (Acute) Uncontrolled type 2 diabetes mellitus (Acute) Subjective: Pt resting comfortably in bed, agreeable to cardioversion. He has no palpitations, no chest pain, no dizziness or LH, no SOB. - Physical Exam General: Alert, Oriented x3, Cooperative HEENT: Atraumatic, PERRLA, EOMI, Normocephalic Neck: Supple, No JVD, Negative Carotid Bruits Lungs: Clear to auscultation, Normal air movement Cardiovascular: No murmurs, Irregular Rate Abdomen: Bowel Sounds Present, Soft, Non Tender Extremities: No edema, Capillary Refill Less than 3 Seconds Skin: No rashes, No breakdown Musculoskeletal: No Tenderness to Palpation of Joints or Extremities Neurological: Cranial nerves II-XII grossly intact Psych/Mental Status: Normal Affect, Appropriate, Alert and oriented to time, place, person, mood and affect Vital Signs Temp Pulse Resp BP Pulse Ox 98.0 F 99 18 115/70 95 10/30/17 08:17 10/30/17 10:59 10/30/17 08:29 10/30/17 08:17 10/30/17 08:17 Oxygen Delivery Method Room Air Weight: 79.3 kg Body Mass Index (BMI) 25.0 Intake and Output for Last 24 Hours 10/28/17 10/29/17 10/30/17 23:59 23:59 23:59 Intake Total 3704 / 3704 2493.2 / 2493.2 Output Total 2275 / 2275 2650 / 2650 Balance 1429 / 1429 -156.8 / -156.8 Laboratory Tests Past 24 Hrs 10/29/17 10/29/17 10/29/17 11:35 11:35 16:30 WBC RBC Hgb Hct MCV MCH MCHC RDW RDW Differential Plt Count MPV Immature Gran % (Auto) Neut % (Auto) Lymph % (Auto) [place] % (Auto) Eos % (Auto) Baso % (Auto) Absolute Neuts (auto) Absolute Lymphs (auto) Total Counted Sodium Potassium Chloride Carbon Dioxide Anion Gap BUN Creatinine Estim Creat Clear Calc Est GFR (MDRD) Af Amer Est GFR (MDRD) Non-Af BUN/Creatinine Ratio Glucose Calcium Magnesium Vitamin B12 Cancelled Pending Folate 18.30 Free T4 0.86 Free T3 pg/dL 1.2 L 10/30/17 10/30/17 10/30/17 05:50 05:50 05:50 WBC 5.9 RBC 4.23 L Hgb 14.6 Hct 42.1 MCV 99.5 H MCH 34.5 H MCHC 34.7 RDW 13.0 RDW Differential 46.6 H Plt Count 142 L MPV 10.1 Immature Gran % (Auto) 0.700 Neut % (Auto) 65.6 Lymph % (Auto) 22.9 [place] % (Auto) 9.0 Eos % (Auto) 1.5 Baso % (Auto) 0.3 Absolute Neuts (auto) 3.9 Absolute Lymphs (auto) 1.35 Total Counted Not Reportable Sodium 141 Potassium 3.0 L Chloride 102 Carbon Dioxide 30.0 Anion Gap 9 BUN 5 L Creatinine 0.50 L Estim Creat Clear Calc 158.17 Est GFR (MDRD) Af Amer 215 Est GFR (MDRD) Non-Af 178 BUN/Creatinine Ratio 9.9 L Glucose 109 H Calcium 7.6 L Magnesium 1.8 Vitamin B12 Folate Free T4 Free T3 pg/dL POC Glucose 10/30/17 10/30/17 10/29/17 11:30 06:51 22:05 POC Glucose 198 H 104 281 H 10/29/17 16:20 POC Glucose 235 H Medical Necessity - Tobacco Use Smoking Status: Current every day smoker Tobacco Use: Cigarettes Assessment/Plan Active and Suspected Problems Atrial flutter with rapid ventricular response (Acute) Uncontrolled type 2 diabetes mellitus (Acute) 1. AF with RVR - cardioversion tomorrow. Jalen following. On Eliquis, metoprolol. 2. T2DM with DKA - new dx. Continue amaryl, TID insulin + levemir. Medical Imaging Technologist consult. F/u with DENISHA Puente. A1C 14.2. 3. Hypothyroidism - TSH high, T4 normal, T3 low. Needs rechecked in 1 month. 4. Hyponatremia - resolved. 2/2 dka 5. macrocytosis - folate normal, b12 pending. DVT ppx: eliquis DC planning: Cardioversion tomorrow. This patient was seen by Hakeem Bean PA-C under the supervision of Doctor Woo. <[place] - Last Filed: 10/30/17 17:12> - Physical Exam Vital Signs Temp Pulse Resp BP Pulse Ox 97.9 F 99 18 121/74 H 94 10/30/17 15:53 10/30/17 15:53 10/30/17 15:53 10/30/17 15:53 10/30/17 15:53 Oxygen Delivery Method Room Air Weight: 79.3 kg Body Mass Index (BMI) 25.0 Intake and Output for Last 24 Hours 10/28/17 10/29/17 10/30/17 23:59 23:59 23:59 Intake Total 3704 / 3704 2493.2 / 2493.2 Output Total 2275 / 2275 2650 / 2650 Balance 1429 / 1429 -156.8 / -156.8 Laboratory Tests Past 24 Hrs 10/29/17 10/29/17 10/30/17 11:35 16:30 05:50 WBC 5.9 RBC 4.23 L Hgb 14.6 Hct 42.1 MCV 99.5 H MCH 34.5 H MCHC 34.7 RDW 13.0 RDW Differential 46.6 H Plt Count 142 L MPV 10.1 Immature Gran % (Auto) 0.700 Neut % (Auto) 65.6 Lymph % (Auto) 22.9 [place] % (Auto) 9.0 Eos % (Auto) 1.5 Baso % (Auto) 0.3 Absolute Neuts (auto) 3.9 Absolute Lymphs (auto) 1.35 Total Counted Not Reportable Sodium Potassium Chloride Carbon Dioxide Anion Gap BUN Creatinine Estim Creat Clear Calc Est GFR (MDRD) Af Amer Est GFR (MDRD) Non-Af BUN/Creatinine Ratio Glucose Calcium Magnesium Vitamin B12 Cancelled Pending 10/30/17 10/30/17 05:50 05:50 WBC RBC Hgb Hct MCV MCH MCHC RDW RDW Differential Plt Count MPV Immature Gran % (Auto) Neut % (Auto) Lymph % (Auto) [place] % (Auto) Eos % (Auto) Baso % (Auto) Absolute Neuts (auto) Absolute Lymphs (auto) Total Counted Sodium 141 Potassium 3.0 L Chloride 102 Carbon Dioxide 30.0 Anion Gap 9 BUN 5 L Creatinine 0.50 L Estim Creat Clear Calc 158.17 Est GFR (MDRD) Af Amer 215 Est GFR (MDRD) Non-Af 178 BUN/Creatinine Ratio 9.9 L Glucose 109 H Calcium 7.6 L Magnesium 1.8 Vitamin B12 POC Glucose 10/30/17 10/30/17 10/29/17 11:30 06:51 22:05 POC Glucose 198 H 104 281 H Assessment/Plan Patient was seen and examined. Agree with the interval history, physical exam assessment and plan as documented above by physician medical research assistant Hakeem Shields . 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 Medications labs and imaging reviewed Code Visit Inpatient E&M: 99031 Subs Hosp L2
--- NOTE | 2017-10-30 16:57 | NURSING ---
THIS RN DID TEACHING THROUGHOUT THE DAY W/ PT ABOUT INSULIN. PT GAVE HIMSELF INSULIN AND APPROPRIATELY CHECKED OWN BLOOD SUGARS ALL DAY. WILL CONTINUE TO ASSESS KNOWLEDGE ON INSULIN AND DIABETES.
[2017-10-30] MEDS: Docusate Sodium 100 MG Capsule 200 MG PO (17:58)
[2017-10-30 18:00] LABS: Bedside Glucose 331 mg/dL (70-110)
[2017-10-30 22:10] LABS: Bedside Glucose 368 mg/dL (70-110)
[2017-10-31] VITALS (10 sets, daily range): BP systolic 105–112; BP diastolic 60–79; PULSE 95–105; RESP 16–20; TEMP 36.9; O2SAT 95–96; BMI 25.0
--- NOTE | 2017-10-31 05:55 | EKG12_ITS ---
Test Reason : AM EKG Blood Pressure : / mmHG Vent. Rate : 107 BPM Atrial Rate : 119 BPM P-R Int : 000 ms QRS Dur : 096 ms QT Int : 366 ms P-R-T Axes : 000 055 148 degrees QTc Int : [address] & T wave abnormality, consider lateral ischemia Abnormal ECG When compared with ECG of 28-OCT-2017 21:27, MANUAL COMPARISON REQUIRED, DATA IS UNCONFIRMED Confirmed by KEEGAN KNIGHT, KIM ([id number]), greeting card editor JOSHUA PATEL ([id number]) on 11/03/2017 2:05:46 PM Referred By: DR DYSON Confirmed By:KIM ALLISON MD
[2017-10-31 06:40] LABS: Anion Gap 7 (5-15); BUN 7 mg/dL (7-18); BUN/Creat Ratio 14.1 RATIO (10-20); Calcium,Total 8.1 mg/dL (8.5-10.1); Chloride 104 mmol/L (98-107); EST Glomerular Filtration Rate 181 mL/min (>60); Est Glom Filt Rate - Afr Amer 219 mL/min (>60); Estimated Creatinine Clearance 158.17 ml/min; Glucose 230 mg/dL (74-106); Sodium Level 140 mmol/L (136-145)
--- NOTE | 2017-10-31 09:07 | PN.CARD_ITS ---
Subjectve: Patient seen and evaluated. Underwent ASHIA this morning. Objective: Vital Signs Temp Pulse Resp BP Pulse Ox 98.4 F 98 18 112/79 95 10/31/17 07:56 10/31/17 07:56 10/31/17 08:03 10/31/17 07:56 10/31/17 07:56 Oxygen Delivery Method Room Air Weight: 174 lb 13.225 oz Body Mass Index (BMI) 25.0 Intake and Output for Last 24 Hours 10/29/17 10/30/17 10/31/17 23:59 23:59 23:59 Intake Total 3704 / 3704 3013.2 / 3013.2 Output Total 2275 / 2275 2650 / 2650 Balance 1429 / 1429 363.2 / 363.2 General: Awake, Alert, Oriented x 3 HEENT: PERRL, EOMI, Sclera Non Icteric Neck: Supple, Good ROM, No Lymph Node Enlargement Lungs: Clear to auscultation Cardiovascular: Irregular Rhythm, Normal S1, Normal S2, No Murmurs, No Rubs, No Gallops Vascular: No Carotid Bruits, Normal Femoral Pulses, Normal Radial Pulses, Normal Dorsalis Pedal Pulse, Normal Posterior Tibial Pulses Abdomen: Bowel Sounds Present, Soft, Non Tender, No HSM, No Organomegaly Extremities: No Cyanosis, No Clubbing, No edema Neurological: No Focal Motor or Sensory Deficit 10/30/17 05:50: Magnesium 1.8 10/31/17 05:40: Sodium 140, Potassium 4.0, Chloride 104, Carbon Dioxide 29.0, Anion Gap 7, BUN 7, Creatinine 0.50 L, Est GFR (MDRD) Af Amer 219, Est GFR (MDRD ) Non-Af 181, BUN/Creatinine Ratio 14.1, Glucose 230 H, Calcium 8.1 L Rhythm: EKG: ECHO: Stress Test: Cardiac Cath: PCI: CT Surgery: Holter monitor: EPS: PPM: CXR: Chest CT Scan: Medical Necessity - Tobacco Use Smoking Status: Current every day smoker Tobacco Use: Cigarettes Assessment/Plan 1. Atrial flutter with rapid ventricular response rate-duration unknown He presents with severe hyperglycemia and is noted to have atrial fibrillation flutter with rapid ventricular response rate. He does have a chads vas score of 1. My recommendation however at the present time would be for him to be anticoagulated. The transesophageal echocardiogram which was performed demonstrated significant spontaneous echo contrast as well as a possible left atrial appendage thrombus. I will therefore suggest that we defer any cardioversion until he has received at least 4 weeks of anticoagulation. He is asymptomatic in any case. He can be discharged later today and seen in my office in 2-4 weeks and a repeat ASHIA with a view towards cardioversion at that time. I have emphasized the importance of continuing his anticoagulation and being adherence to it with him. Thank you for allowing me to participate in the care of your patient. Please don't hesitate to call if any issues arise
[2017-10-31 09:33] LABS: Vitamin B12 740 pg/mL (211-911)
[2017-10-31] MEDS: 0.9% NaCl Peripheral Flush Adult/Peds IV (09:59)
[2017-10-31] MEDS: Glimepiride 4 MG Tablet PO (10:00)
[2017-10-31] MEDS: Metoprolol Tartrate 100 MG Tablet PO (10:00)
[2017-10-31] MEDS: dilTIAZem CD 120 MG Capsule PO (10:04)
[2017-10-31] MEDS: APIXABAN 5 MG TABLET PO (10:19)
--- NOTE | 2017-10-31 10:24 | NURSING ---
TALKED WITH DR. ALLISON. PT TO RETURN TO WORK NEXT WEEK. 11/07/17
[2017-10-31 11:26] LABS: Bedside Glucose 237 mg/dL (70-110)
--- NOTE | 2017-10-31 11:27 | DCINST_ITS ---
- Discharge Diagnoses Current Active Problems: Current Active and Chronic Problems Atrial flutter with rapid ventricular response (Acute) Uncontrolled type 2 diabetes mellitus (Acute) You will use the following diet at home:: Calorie/Carbohydrate Controlled ( specify 1200, 1400, etc) - 1800 sheldon/day, Cardiac - 2 g sodium / day, low cholesterol. Your food should be the consistency of: Regular Your liquids should be the consistency of: Regular/Thin Discharge Activity: Return to Normal Activity Allergies/Adverse Reactions: Allergies No Known Allergies Allergy (Verified 10/28/17 21:00) Medications to take at Discharge Acetaminophen [Tylenol Tablet] 650 mg PO Q6H PRN PRN tablet 10/31/17 Apixaban [Eliquis] 5 mg PO BID #60 tab 10/31/17 Diltiazem CD [Cardizem CD] 120 mg PO DAILY #30 cap 10/31/17 Glimepiride [Amaryl] 4 mg PO DAILY@0800 #30 tab 10/31/17 Insulin Aspart [Novolog Flexpen] 3 units SC BREAKFAST #1 flexpen 10/31/17 Insulin Aspart [Novolog Flexpen] 3 units SC DINNER #1 flexpen 10/31/17 Insulin Aspart [Novolog Flexpen] 3 units SC LUNCH #1 flexpen 10/31/17 Insulin Detemir [Levemir FlexPen] 10 units SC BID #1 insuln.pen 10/31/17 Metoprolol Tartrate [Lopressor (beta maciej)] 100 mg PO BID #60 tab 10/31/17 Potassium Chloride [K-Dur] 20 meq PO DAILY #30 tab 10/31/17 The following prescriptions were given: Apixaban [Eliquis] 5 mg PO BID #60 tab Diltiazem CD [Cardizem CD] 120 mg PO DAILY #30 cap Glimepiride [Amaryl] 4 mg PO DAILY@0800 #30 tab Insulin Aspart [Novolog Flexpen] 3 units SC LUNCH #1 flexpen Insulin Aspart [Novolog Flexpen] 3 units SC BREAKFAST #1 flexpen Insulin Aspart [Novolog Flexpen] 3 units SC DINNER #1 flexpen Insulin Detemir [Levemir FlexPen] 10 units SC BID #1 insuln.pen Metoprolol Tartrate [Lopressor (beta maciej)] 100 mg PO BID #60 tab Potassium Chloride [K-Dur] 20 meq PO DAILY #30 tab Primary Care Physician: Laury Doctor,Out of [NON-STAFF] - Please follow up with your Primary Care Physician in: 2-3 weeks Please Follow Up With: Lenny Rao MD When: 2-4 weeks Please Follow Up With: Linda Puente NP-C When: 2 weeks Proposed Discharge Date: 10/31/17
[2017-10-31 11:41] LABS: Bedside Glucose 336 mg/dL (70-110)
--- NOTE | 2017-10-31 12:01 | CASEMGMT ---
Addendum entered by Ina Jose 10/31/17 14:32: [address] [facility] and they still had not faxed scripts to [facility] but stated they will at this time. Call then placed to [facility] and [facility] had not sent them pt's prescription insurance info. Pt did have card with him at this time and Rx insurance info called to [facility] at this time. Per tech at [facility], pt's Eliquis will still be $406.24/month. Pt could be given Eliquis card but would still be paying about $80-90/month due to the max/year $3800 on the card. Garrison HALE updated at this time and states that he will try and send Xarelto instead. Garrison HALE also states that he will be switching some of previous scripts as follows: he is cancelling novolog with meals and increasing Levemir dose and he states he is also changing the amaryl to metformin. Makenna Desouza RN aware at this time and states will obtain new discharge instructions for pt at this time. Call to [facility] at this time to update med changes and check Xarelto. Per [facility], Xarelto is also about $400/month also for pt. Pt will just stay with Eliquis script and $10 co-pay card as they have a higher maximum out of pocket then the Xarelto co-pay card. Pt updated on all at this time and given co-pay card at this time, voices understanding. Call to [facility] and advised Roberto, pharmacist, to cancel the Xarelto at this time, voices understanding. Per Roberto, they do not have any glucometers in stock that are covered on pt's insurance plan. Pt advised to get the Relion glucometer at [facility] as that would be the cheapest for him at this time. Per Roberto, pt has not met any of his deductible yet this year, so all meds will go toward deductible and he will have to pay out of pocket at this time. Pt updated at this time and voices understanding. Pt is ready for discharge at this time. Pt voices no further questions/concerns at this time. Leilani KUMAR CM Original Note: 1030 Per Garrison HALE, pt to be sent home on Eliquis. Script e-scribed to [facility] at this time. Pt also written for Glucometer with all testing supplies as he is a newly diagnosed diabetic. Script for this also faxed to [facility]. Call to [facility] and per the tech, [facility] is not in-network for pt's insurance and they state they will be able to transfer scripts to new pharmacy when known. Call to Clare at [facility] and per Clare, [facility] is in-network for pt and glucometer testing supplies are covered through pharmacy benefits. Call back to [facility] and per Carli, pharmacist, their system is still saying that they are not in-network but she states she will makes some calls. Pt updated on all at this time, voices understanding. Offered to set up f/u for pt with DENISHA Puente, endocrinology, and agrees at this time. Soonest appointment for pt is 11/30/17 at 1545. Pt is also set up with appointment with Dr. Hammer for 11/18/17 at 1030 as a new patient. Makenna KUMAR updated on all and voices understanding. 1200 Received a call back from [facility] and they are stating again they are not in-network for pt at this time. Call to Kristina at [facility] to verify and they state that the only in-network pharmacies in [place] are: [facility], [facility], [facility], [facility], and [facility]. Pt updated on all and states he would like [facility]. Call to Carli at [facility] and she states she will transfer all scripts to [facility]. 1315 Call to [facility] at this time and they have still not received scripts which [facility] said they were transferring over an hour ago. This STACY LEONARD will place another call to [facility] to verify scripts to be transferred at this time. Leilani KUMAR CM
--- NOTE | 2017-10-31 13:33 | PCM.DC.SUM ---
<Hakeem Bean - Last Filed: 10/31/17 13:33> Discharge Date and Diagnosis - Problem List Patient Problems: Active and Suspected Problems Atrial flutter with rapid ventricular response (Acute) Uncontrolled type 2 diabetes mellitus (Acute) Date of Admission: 10/28/17 Date of Discharge: 10/31/17 - Primary Discharge Diagnosis Active and Suspected Problems New onset Atrial flutter with rapid ventricular response (Acute) Atrial Thrombus Uncontrolled type 2 diabetes mellitus (Acute) with hyperglycemia without DKA Hyponatremia 2/2 hyperglycemia Hypokalemia Hospital Course and Treatment Imaging Results: TTE Interpretation Summary Normal LV size. Moderately severe global left ventricular systolic dysfunction. The estimated ejection fraction is 30 %. The left atrium is severely enlarged. The right atrium is moderately enlarged. Structurally normal valves. ASHIA Interpretation Summary Normal LV size. Moderately severe global left ventricular systolic dysfunction. The estimated ejection fraction is 20 %. There is severe global hypokinesis of the left ventricle. The left atrium is severely enlarged. There is severe sponatenous contrast in the left atrium. Appendage thrombus of the left atrium. Consults: Cardiology - Jalen Operations: None Procedures: 2-D Echocardiogram, Transesophageal Echo Summary of Care Provided: Physical exam on day of discharge: General: Resting comfortably NAD Psych: A/Ox3 normal affect HEENT: PEARRLA AT NC Neck: Supple NT CV: irreg/irreg no m/t/r/g/h Resp: CTA Abd: [id number] Soft NT no guarding or rigidity Ext: DP2+= no edema Skin: W/D normal turgor Lymph/Heme: No active bleeding or adenopathy Neuro: CN2-12 intact Hospital course: The patient is a 62 year old M with no prior medical hx who presented to the ER with elevated blood sugar. He had routine blood work done for work 2 weeks prior and was sent results showing glucose of 600. He came to the ER as he could not be seen by a PCP for about 3 weeks. He was found to have severely elevated blood sugar and he was in AF with RVR. He had ketones in his urine, however he had negative acetone level, and was not acidotic on BMP or ABG, and was not felt to be in DKA. He was admitted to the tele floor and started on insulin and amaryl, as well as cardizem. Cardiology was consulted. Cardiology had planned for cardioversion, however the ASHIA before the cardioversion demonstrated an atrial thrombus. He had been started on eliquis prior, and this was continued. He will continue oral cardizem, and metoprolol, and he will continue amaryl, mealtime insulin, and levemir. He will follow up with cardiology for an outpatient cardioversion after he has remained on anticoagulation, and he will also follow up with DENISHA Puente for further diabetic care. His A1C was 14.2. He also had high TSH, normal T4, and low T3, so he will need his thyroid studies periodically rechecked as an outpatient. As he is now on potassium for low K, he should have a BMP drawn in 5 days as an outpatient. He was trained on diabetic diet, how to check blood sugar, and how to administer insulin. He remained in stable condition and was discharged home. This patient was seen by Hakeem Bean PA-C under the supervision of Doctor Miller. [] Discharge Activity: Return to Normal Activity Home Medications: Medications to take at Discharge Acetaminophen [Tylenol Tablet] 650 mg PO Q6H PRN PRN tablet 10/31/17 Apixaban [Eliquis] 5 mg PO BID #60 tab 10/31/17 Diltiazem CD [Cardizem CD] 120 mg PO DAILY #30 cap 10/31/17 Glimepiride [Amaryl] 4 mg PO DAILY@0800 #30 tab 10/31/17 Insulin Aspart [Novolog Flexpen] 3 units SC BREAKFAST #1 flexpen 10/31/17 Insulin Aspart [Novolog Flexpen] 3 units SC DINNER #1 flexpen 10/31/17 Insulin Aspart [Novolog Flexpen] 3 units SC LUNCH #1 flexpen 10/31/17 Insulin Detemir [Levemir FlexPen] 10 units SC BID #1 insuln.pen 10/31/17 Metoprolol Tartrate [Lopressor (beta maciej)] 100 mg PO BID #60 tab 10/31/17 Potassium Chloride [K-Dur] 20 meq PO DAILY #30 tab 10/31/17 Following Prescrptions Were Given to Patient: Apixaban [Eliquis] 5 mg PO BID #60 tab Diltiazem CD [Cardizem CD] 120 mg PO DAILY #30 cap Glimepiride [Amaryl] 4 mg PO DAILY@0800 #30 tab Insulin Aspart [Novolog Flexpen] 3 units SC LUNCH #1 flexpen Insulin Aspart [Novolog Flexpen] 3 units SC BREAKFAST #1 flexpen Insulin Aspart [Novolog Flexpen] 3 units SC DINNER #1 flexpen Insulin Detemir [Levemir FlexPen] 10 units SC BID #1 insuln.pen Metoprolol Tartrate [Lopressor (beta maciej)] 100 mg PO BID #60 tab Potassium Chloride [K-Dur] 20 meq PO DAILY #30 tab Primary Care Physician: Laury Doctor,Out of [NON-STAFF] - Please follow up with your Primary Care Physician in: 2-3 weeks Please Follow Up With: Lenny Rao MD When: 2-4 weeks Please Follow Up With: Linda Puente NP-C When: 2 weeks Medical Necessity - Tobacco Use Smoking Status: Current every day smoker Tobacco Use: Cigarettes Meaningful Use Info Meaningful Use Diagnoses (Choose all that apply): None applicable <Al Miller - Last Filed: 10/31/17 14:06> Discharge Date and Diagnosis - Primary Discharge Diagnosis Active and Suspected Problems Atrial flutter with rapid ventricular response (Acute) Uncontrolled type 2 diabetes mellitus (Acute) Hospital Course and Treatment Summary of Care Provided: This patient was seen in conjunction with Hakeem Bean PA-C. I have independently interviewed and examined the patient and reviewed pertinent historical, laboratory, and other data. Please refer to Hakeem Bean PA-C note for details of this patient's presentation, findings, and recommendations. I have reviewed Hakeem Bean PA-C note and concur with documented findings. In brief, patient is a 89-year-old gentleman who presented with elevated blood glucose as well as A. fib with RVR. She was admitted to regular nursing floor for management. His glucose levels did improve. Regarding his A. fib with RVR cardiology patient was seen by Dr. Rao who did perform ASHIA which demonstrated left atrial thrombus patient was therefore not cardioverted instead discharged home with systemic anticoagulation for patient to be brought back in 4 weeks and if still in A. fib to undergo cardioversion. Hospital Course as elicited above by Hakeem Bean PA-C Time spent at discharge 35 minutes Minutes spent on discharge:: 35 Code Visit Inpatient E&M: [id number] Disch Hosp
== END 2017-10-31 15:24 | disposition home or self-care (01) | DRG 638 ==
LOC: ED 21:36 → PCU 23:14
PROVIDERS: Internal Medicine; Physician Assistant; Admitting Provider Hospitalist; Emergency Provider Emergency Medicine; Family Provider Family Medicine; PCP Family Medicine; Visit Provider Internal Medicine
DX: E11.65 Type 2 diabetes mellitus with hyperglycemia (principal); I48.92 Unspecified atrial flutter; E87.1 Hypo-osmolality and hyponatremia; I48.91 Unspecified atrial fibrillation; I51.3 Intracardiac thrombosis, not elsewhere classified; E87.6 Hypokalemia; E03.9 Hypothyroidism, unspecified; D75.89 Other specified diseases of blood and blood-forming organs; F17.210 Nicotine dependence, cigarettes, uncomplicated; Z79.4 Long term (current) use of insulin; Z79.84 Long term (current) use of oral hypoglycemic drugs; Z79.01 Long term (current) use of anticoagulants; Z79.899 Other long term (current) drug therapy
CPT/HCPCS: 36415; 36600; 80048; 80061; 80076; 81001; 82009; 82607; 82746; 82803; 82962; 83036; 83735; 84439; 84443; 84481; 84484; 85025; 93005; 93306; 93312; 93320; 93325; 97161; 97166; 97802; 99285; 99406; J7030; J7040; A4216; J2310

== ENCOUNTER → 2017-11-04 10:26 | Outpatient (CLI) | payer OTHER, SELFPAY ==
[2017-11-04 11:30] LABS: Anion Gap 8 (5-15); BUN 15 mg/dL (7-18); Calcium,Total 8.8 mg/dL (8.5-10.1); Chloride 100 mmol/L (98-107); Creatinine, Serum 0.88 mg/dL (0.70-1.30); EST Glomerular Filtration Rate 93 mL/min (>60); Est Glom Filt Rate - Afr Amer 113 mL/min (>60); Glucose 294 mg/dL (74-106); Potassium 4.8 mmol/L (3.5-5.1); Sodium Level 136 mmol/L (136-145)
== END ==
PROVIDERS: Family Provider Family Medicine; PCP Family Medicine; Visit Provider Physician Assistant
DX: E87.6 Hypokalemia (principal)
CPT/HCPCS: 36415; 80048

== ENCOUNTER → 2017-11-18 11:21 | Outpatient (CLI) | payer OTHER, SELFPAY ==
[2017-11-18 14:24] LABS: Albumin, Serum 3.2 g/dL (3.2-5.0); BUN 11 mg/dL (7-18); BUN/Creat Ratio 16.5 RATIO (10-20); Creatinine, Serum 0.67 mg/dL (0.70-1.30); EST Glomerular Filtration Rate 129 mL/min (>60); Est Glom Filt Rate - Afr Amer 156 mL/min (>60); Glucose 114 mg/dL (74-106); Protein, Total 6.5 g/dL (6.4-8.2)
[2017-11-18 14:25] LABS: AST(SGOT) 31 U/L (15-37); Alanine Aminotransfer ALT/SGPT 47 U/L (16-61); Alkaline Phosphatase 81 U/L (45-117); Anion Gap 7 (5-15); Bilirubin, Direct 0.08 mg/dL (0.00-0.30); Calcium,Total 8.7 mg/dL (8.5-10.1); Chloride 109 mmol/L (98-107); Cholesterol 168 mg/dL (200); Globulin 3.3 g/dL (2.2-4.2); High Density Lipoprotein 50 mg/dL; Potassium 4.9 mmol/L (3.5-5.1); Sodium Level 143 mmol/L (136-145); Triglycerides 95 mg/dL; Very Low Density Lipoprotein 19 mg/dL (5-40)
== END ==
PROVIDERS: Family Provider Family Medicine; PCP Family Medicine; Visit Provider Family Medicine
DX: E11.9 Type 2 diabetes mellitus without complications (principal)
CPT/HCPCS: 36415; 80048; 80061; 80076

== ENCOUNTER → 2018-01-16 09:46 | Outpatient (CLI) | payer OTHER, SELFPAY ==
--- NOTE | 2018-01-09 16:41 | RAD_ITS ---
STUDY: X-RAY CHEST REASON FOR EXAM: Male, 62 years old. Atrial fibrillation TECHNIQUE: 2 views COMPARISON: None. FINDINGS: The lungs are clear and expanded. There is no demonstrated pleural abnormality. Normal size heart. Normal mediastinum and makenzie. Normal visualized pulmonary arteries. Normal visualized aortic arch and descending thoracic aorta. Degenerative changes of the thoracic spine. Normal visualized ribs, clavicles, and shoulders. There is no demonstrated abnormality of the visualized soft tissue structures of the upper abdomen. RAD/Chest PA and Lateral IMPRESSION: No acute findings in the lungs. Degenerative changes of the thoracic spine Electronically Signed: Júnior Briceno, at 2:27 EDT Tel , Service support ,
[2018-01-09 17:16] LABS: International Normalized Ratio 1.3; Prothrombin Time (Protime)PT. 16.4 SECONDS (11.7-14.9)
[2018-01-09 17:23] LABS: Anion Gap 4 (5-15); BUN 26 mg/dL (7-18); Calcium,Total 9.1 mg/dL (8.5-10.1); Chloride 106 mmol/L (98-107); Creatinine, Serum 1.63 mg/dL (0.70-1.30); EST Glomerular Filtration Rate 46 mL/min (>60); Est Glom Filt Rate - Afr Amer 55 mL/min (>60); Glucose 133 mg/dL (74-106); Potassium 4.7 mmol/L (3.5-5.1); Sodium Level 137 mmol/L (136-145)
[2018-01-13 13:08] VITALS: BMI 28.8
--- NOTE | 2018-01-16 09:47 | ECHOTEE_ITS ---
Reason For Study: Afib, Aflutter Medication Cetacaine Topical [place] given X3 orally. Versed 1 mg given slow IVP. Fentanyl 50 mcg given slow IVP. Left Ventricle Normal LV size. Moderately severe global left ventricular systolic dysfunction. The estimated ejection fraction is 35 %. No regional wall motion abnormalities noted. Right Ventricle Normal RV size. Normal systolic function. Atria Normal atrial septum. The left atrium is moderately enlarged. There is moderate sponatenous contrast in the left atrium. No thrombus is detected in the left atrial appendage. Normal right atrium. Mitral Valve Normal mitral valve. Mild (1+) eccentric mitral valve insufficiency. Tricuspid Valve Normal tricuspid valve. Aortic Valve Normal aortic valve. Trisinus/trileaflet aortic valve. Pulmonic Valve Normal pulmonic valve. Vessels Normal aortic root. Pericardium No pericardial effusion. Interpretation Summary Normal LV size. Moderately severe global left ventricular systolic dysfunction. The estimated ejection fraction is 35 %. The left atrium is moderately enlarged. There is moderate sponatenous contrast in the left atrium. No thrombus is detected in the left atrial appendage. Ordering Physician: Wilbur Rodriguez Referring Physician: Lenny Rao Performed By: Clare Rodriguez, DAYANA, RVT ??? Reason For Study: Afib, Aflutter Interpretation Summary Normal LV size. Moderately severe global left ventricular systolic dysfunction. The estimated ejection fraction is 35 %. The left atrium is moderately enlarged. There is moderate sponatenous contrast in the left atrium. No thrombus is detected in the left atrial appendage. Ordering Physician: Wilbur Rodriguez Referring Physician: Lenny Rao Performed By: Clare Rodriguez, DAYANA, RVT
--- NOTE | 2018-01-16 12:58 | PCM.OP.BLANK ---
Operative Report Date of Procedure: 01/16/18 DC cardioversion. Patient is a 62-year-old man with a history of chronic persistent atrial fibrillation. He underwent a transvaginal echocardiogram today which demonstrated no evidence of left atrial appendage thrombus. The patient was then brought to the noninvasive laboratory and was seen by Dr. Pollock of the critical care division. Anterior posterior pads were applied and the patient was then administered 10 mg of intravenous etomidate. 200 J of synchronized DC cardioversion energy were applied and the patient promptly reverted to sinus rhythm. Conclusion: DC cardioversion with prompt reversal to sinus rhythm. Recommendations: Would recommend DC Cardizem Continue beta-maciej.
--- NOTE | 2018-01-16 14:45 | PCM.OP.BLANK ---
Problem List (1) Atrial flutter with rapid ventricular response Status: Acute (2) Hypersomnia, unspecified Status: Acute (3) Uncontrolled type 2 diabetes mellitus Status: Acute Qualifiers: Diabetes mellitus rn long term care insulin use: without rn long term care use Diabetes mellitus complication status: without complication Qualified Code(s): E11.65 - Type 2 diabetes mellitus with hyperglycemia Comment: Doing very well at this stage. Discussed diet, exercise, weight, smoking cessation, BG control, hyperglycemia and hypoglycemia, use of equipment, blood pressure, foot care, self management. Operative Report Date of Procedure: 01/16/18 - Conscious sedation CONSCIOUS SEDATION REPORT BRIEF HISTORY OF PRESENT ILLNESS: The patient is a 62-year-old male who presented to [facility] for an elective outpatient cardioversion due to underlying atrial flutter. The patient reports no PO intake since midnight. The patient does not have a reported history of obstructive sleep apnea, but does readily admit to snoring. The patient reports a history of smoking, but is never been formally diagnosed with COPD. The patient denies any recent constitutional symptoms such as fevers, chills, nausea or vomiting. The patient denies previous anesthetic exposure. PHYSICAL EXAMINATION: VITAL SIGNS: Reviewed and were acceptable. GENERAL: The patient is an obese male, in no apparent distress, speaking in full sentences. HEENT: Normocephalic, atraumatic. Mucous membranes are moist and pink. Good mouth opening noted. Trachea is midline. Good neck mobility. MP IV CHEST: S1, S2 irregularly irregular. No murmurs, rubs or gallops were noted. LUNGS: Clear to auscultation bilaterally without appreciable wheezes, rales or rhonchi. ABDOMEN: Soft, nontender, nondistended. Positive bowel sounds. EXTREMITIES: There is no clubbing, cyanosis or edema. ASA Class: II DESCRIPTION OF PROCEDURE: After confirmation of informed consent, the patient's anesthesia plan was reviewed in detail. Etomidate was chosen. Risks and benefits were reviewed and the patient agreed to proceed. At 12:18 PM, the patient was given 4 mg of etomidate. The patient required a total of 10 mg of etomidate throughout the procedure to achieve appropriate sedation. The patient achieved an appropriate level of sedation and received 1 attempt s synchronized cardioversion, at [address] Rao at the bedside. This was successful in achieving normal sinus rhythm. The patient was monitored until 12:27 PM, at which time the patient reached their baseline mental status and function. The patient tolerated the procedure well. COMPLICATIONS: None ESTIMATED BLOOD LOSS: None RECOMMENDATIONS: Okay to recover in usual fashion. Code Visit 9xxxx: Other Procedure See Report - 9 minutes of conscious sedation time - [id number]
--- NOTE | 2018-01-16 14:48 | OP.PCM_ITS ---
Problem List (1) Atrial flutter with rapid ventricular response Status: Acute (2) Hypersomnia, unspecified Status: Acute (3) Uncontrolled type 2 diabetes mellitus Status: Acute Qualifiers: Diabetes mellitus termite exterminator insulin use: without termite exterminator use Diabetes mellitus complication status: without complication Qualified Code(s): E11.65 - Type 2 diabetes mellitus with hyperglycemia Comment: Doing very well at this stage. Discussed diet, exercise, weight, smoking cessation, BG control, hyperglycemia and hypoglycemia, use of equipment , blood pressure, foot care, self management. Operative Report Date of Procedure: 01/16/18 - Conscious sedation CONSCIOUS SEDATION REPORT BRIEF HISTORY OF PRESENT ILLNESS: The patient is a 62-year-old male who presented to [facility] for an elective outpatient cardioversion due to underlying atrial flutter. The patient reports no PO intake since midnight. The patient does not have a reported history of obstructive sleep apnea, but does readily admit to snoring. The patient reports a history of smoking, but is never been formally diagnosed with COPD. The patient denies any recent constitutional symptoms such as fevers, chills, nausea or vomiting. The patient denies previous anesthetic exposure. PHYSICAL EXAMINATION: VITAL SIGNS: Reviewed and were acceptable. GENERAL: The patient is an obese male, in no apparent distress, speaking in full sentences. HEENT: Normocephalic, atraumatic. Mucous membranes are moist and pink. Good mouth opening noted. Trachea is midline. Good neck mobility. MP IV CHEST: S1, S2 irregularly irregular. No murmurs, rubs or gallops were noted. LUNGS: Clear to auscultation bilaterally without appreciable wheezes, rales or rhonchi. ABDOMEN: Soft, nontender, nondistended. Positive bowel sounds. EXTREMITIES: There is no clubbing, cyanosis or edema. ASA Class: II DESCRIPTION OF PROCEDURE: After confirmation of informed consent, the patient's anesthesia plan was reviewed in detail. Etomidate was chosen. Risks and benefits were reviewed and the patient agreed to proceed. At 12:18 PM, the patient was given 4 mg of etomidate. The patient required a total of 10 mg of etomidate throughout the procedure to achieve appropriate sedation. The patient achieved an appropriate level of sedation and received 1 attempt s synchronized cardioversion, at [address] Rao at the bedside. This was successful in achieving normal sinus rhythm. The patient was monitored until 12:27 PM, at which time the patient reached their baseline mental status and function. The patient tolerated the procedure well. COMPLICATIONS: None ESTIMATED BLOOD LOSS: None RECOMMENDATIONS: Okay to recover in usual fashion. Code Visit 9xxxx: Other Procedure See Report - 9 minutes of conscious sedation time - [id number]
== END ==
PROVIDERS: Family Provider Family Medicine; PCP Family Medicine; Visit Provider Nurse Practitioner Family
DX: I48.92 Unspecified atrial flutter (principal); I48.91 Unspecified atrial fibrillation
CPT/HCPCS: 36415; 71046; 80048; 85610; 92960; 93005; 93312; 93320; 93325; J7040; A4216; J2310

== ENCOUNTER → 2018-02-16 10:45 | Outpatient (CLI) | payer OTHER, SELFPAY ==
[2018-02-16 12:20] LABS: AST(SGOT) 18 U/L (15-37); Alanine Aminotransfer ALT/SGPT 46 U/L (16-61); Albumin, Serum 3.5 g/dL (3.2-5.0); Alkaline Phosphatase 70 U/L (45-117); Anion Gap 6 (5-15); BUN 11 mg/dL (7-18); BUN/Creat Ratio 16.2 RATIO (10-20); Bilirubin, Direct 0.12 mg/dL (0.00-0.30); Calcium,Total 8.3 mg/dL (8.5-10.1); Chloride 104 mmol/L (98-107); Cholesterol 163 mg/dL (200); Creatinine, Serum 0.68 mg/dL (0.70-1.30); EST Glomerular Filtration Rate 125 mL/min (>60); Est Glom Filt Rate - Afr Amer 152 mL/min (>60); Globulin 3.6 g/dL (2.2-4.2); Glucose 182 mg/dL (74-106); High Density Lipoprotein 34 mg/dL; Potassium 4.5 mmol/L (3.5-5.1); Protein, Total 7.1 g/dL (6.4-8.2); Sodium Level 139 mmol/L (136-145); Triglycerides 79 mg/dL; Very Low Density Lipoprotein 16 mg/dL (5-40)
== END ==
PROVIDERS: Family Provider Family Medicine; PCP Family Medicine; Visit Provider Family Medicine
DX: E11.9 Type 2 diabetes mellitus without complications (principal)
CPT/HCPCS: 36415; 80048; 80061; 80076; 83036

== ENCOUNTER → 2018-03-02 12:14 | Outpatient (CLI) | payer OTHER, SELFPAY ==
[2018-03-02 13:32] LABS: Microalbumin,Random Urine 15.7 mg/L (NO RANGE EST.); Microalbumin:Creatinine Ratio 17.4 mg/g CRE (<30 mg/g CRE)
== END ==
PROVIDERS: Family Provider Family Medicine; PCP Family Medicine; Visit Provider Family Medicine
DX: E11.9 Type 2 diabetes mellitus without complications (principal)
CPT/HCPCS: 82043; 82570

== ENCOUNTER → 2018-07-20 17:19 | Outpatient (CLI) | payer OTHER, SELFPAY ==
[2018-07-20 16:05] VITALS: BMI 29.8
[2018-07-20 17:54] LABS: Hemoglobin A1c 8.7 % (4.2-6.3)
[2018-07-20 18:10] LABS: ALB/GLOB Ratio 1.2 RATIO (0.9-2.4); AST(SGOT) 18 U/L (15-37); Alanine Aminotransfer ALT/SGPT 35 U/L (16-61); Albumin, Serum 3.8 g/dL (3.2-5.0); Alkaline Phosphatase 64 U/L (45-117); Anion Gap 9 (5-15); BUN 16 mg/dL (7-18); BUN/Creat Ratio 17.5 RATIO (10-20); Calcium,Total 8.2 mg/dL (8.5-10.1); Chloride 110 mmol/L (98-107); Creatinine, Serum 0.91 mg/dL (0.70-1.30); EST Glomerular Filtration Rate 89 mL/min (>60); Est Glom Filt Rate - Afr Amer 108 mL/min (>60); Globulin 3.3 g/dL (2.2-4.2); Glucose 111 mg/dL (74-106); Potassium 4.3 mmol/L (3.5-5.1); Protein, Total 7.1 g/dL (6.4-8.2); Sodium Level 143 mmol/L (136-145)
== END ==
PROVIDERS: Family Provider Family Medicine; PCP Family Medicine; Referring Provider Nurse Practitioner; Visit Provider Nurse Practitioner
DX: E11.65 Type 2 diabetes mellitus with hyperglycemia (principal)
CPT/HCPCS: 36415; 80053; 83036

== ENCOUNTER → 2018-08-04 15:52 | Outpatient (CLI) | payer OTHER, SELFPAY ==
[2018-07-20 16:05] VITALS: BMI 29.8
--- NOTE | 2018-08-04 15:57 | ECHOD_ITS ---
Version 2 Reason For Study: AFIB Procedure This was a 2D Doppler, Color Flow transthoracic echocardiogram. Exam performed in department. Left Ventricle Normal LV size. Left ventricular systolic function is normal. The estimated ejection fraction is 65 %. Stage 1 diastolic dysfunction. No regional wall motion abnormalities noted. Right Ventricle Normal RV size. Normal systolic function. Atria The left atrium is mildly enlarged. Normal right atrium. Mitral Valve Normal mitral valve. Trivial eccentric mitral valve insufficiency. Tricuspid Valve Normal tricuspid valve. Mild tricuspid valve insufficiency. Pulmonary artery systolic pressure is 29 mmHg. Aortic Valve Trisinus/trileaflet aortic valve. Mild focal aortic valve calcification. Trivial eccentric aortic valve insufficiency. Pulmonic Valve Normal pulmonic valve. Trivial pulmonic valve insufficiency. Great Vessels Normal aortic root. The pulmonary artery is normal size. Normal inferior vena cava. Pericardium/Pleural No pericardial effusion. MMode/2D Measurements & Calculations LVIDd: 5.4 cm IVSd: 0.95 cm Ao root diam: 3.8 cm LVIDs: 3.8 cm LVPWd: 0.94 cm RVDd: 4.4 cm FS: 29.0 % LAV(MOD-bp): 111.4 ml EDV(MOD-sp4): 164.4 ml EDV(MOD-sp2): 130.9 ml LAV(MOD-bp) Indexed: 53.3 ml/m2 ESV(MOD-sp4): 65.7 ml EF(MOD-sp2): 60.4 % LAV(MOD-sp2): 118.9 ml EF(MOD-sp4): 60.0 % LAV(MOD-sp4): 101.7 ml SV(MOD-sp4): 98.7 ml SV(MOD-sp2): 79.0 ml LA A4 area: 29.8 cm2 LA dimension(2D): 5.6 cm RA A4 area: 24.1 cm2 Time Measurements MV dec time: 0.40 sec Doppler Measurements & Calculations MV E max tripp: 76.7 cm/sec Lat Peak E' Tripp: 11.7 cm/sec Med Peak E' Tripp: 8.6 cm/sec MV A max tripp: 85.4 cm/sec E/E' lat: 6.6 E/E' med: 8.9 MV E/A: 0.90 Ao V2 max: 185.2 cm/sec LV V1 max: 170.4 cm/sec PA V2 max: 96.1 cm/sec Ao max P.7 mmHg LV V1 max P.6 mmHg TR max tripp: 258.7 cm/sec TR max P.8 mmHg Interpretation Summary Normal LV size. Left ventricular systolic function is normal. The estimated ejection fraction is 65 %. Stage 1 diastolic dysfunction. No regional wall motion abnormalities noted. Trivial eccentric mitral valve insufficiency. Pulmonary artery systolic pressure is 29 mmHg. Compared to previous study, the left ventricular systolic function has improved.. Ordering Physician: Lenny Rao Referring Physician: HEENA MCWILLIAMS Performed By: Kady Saez, DAYANA, RVT
== END ==
PROVIDERS: Family Provider Family Medicine; PCP Family Medicine; Referring Provider Internal Medicine Cardiovascular Disease; Visit Provider Internal Medicine Cardiovascular Disease
DX: I42.9 Cardiomyopathy, unspecified (principal)
CPT/HCPCS: 93306

== ENCOUNTER → 2018-12-07 16:12 | Outpatient (CLI) | payer OTHER, SELFPAY ==
[2018-10-04 14:26] VITALS: BMI 29.0
[2018-12-07 18:02] LABS: AST(SGOT) 20 U/L (15-37); Alanine Aminotransfer ALT/SGPT 39 U/L (16-61); Albumin, Serum 3.8 g/dL (3.2-5.0); Alkaline Phosphatase 64 U/L (45-117); Anion Gap 7 (5-15); BUN 17 mg/dL (7-18); BUN/Creat Ratio 21.6 RATIO (10-20); Calcium,Total 8.6 mg/dL (8.5-10.1); Chloride 105 mmol/L (98-107); Cholesterol 162 mg/dL (200); Creatinine, Serum 0.79 mg/dL (0.70-1.30); EST Glomerular Filtration Rate 106 mL/min (>60); Est Glom Filt Rate - Afr Amer 128 mL/min (>60); Glucose 124 mg/dL (74-106); High Density Lipoprotein 47 mg/dL; Potassium 4.5 mmol/L (3.5-5.1); Protein, Total 6.8 g/dL (6.4-8.2); Sodium Level 141 mmol/L (136-145); Triglycerides 175 mg/dL; Very Low Density Lipoprotein 35 mg/dL (5-40)
== END ==
PROVIDERS: Family Provider Family Medicine; PCP Family Medicine; Referring Provider Family Medicine; Visit Provider Family Medicine
DX: E11.9 Type 2 diabetes mellitus without complications (principal)
CPT/HCPCS: 36415; 80048; 80061; 80076

== ENCOUNTER → 2019-03-08 16:15 | Outpatient (CLI) | payer OTHER, SELFPAY ==
[2018-10-04 14:26] VITALS: BMI 29.0
--- NOTE | 2019-03-08 16:17 | RAD_ITS ---
STUDY: X-RAY - RIGHT KNEE REASON FOR EXAM: Male, 63 years old. Right knee pain TECHNIQUE: 4 view(s) of the knee. COMPARISON: None. FINDINGS: Normal visualized distal femur. Normal visualized proximal tibia and fibula. Normal proximal tibiofibular articulation. There is mild degenerative arthrosis of the medial femorotibial compartment. There is mild degenerative arthrosis of the lateral femorotibial compartment. Normal patellofemoral articulation. The soft tissue structures are unremarkable. RAD/Knee 4 or More Views IMPRESSION: Mild arthritic changes of the medial and lateral knee compartments. Electronically Signed: Galileo Tan MD at 17:06 EDT , Service support ,
== END ==
PROVIDERS: Family Provider Family Medicine; PCP Family Medicine; Referring Provider Family Medicine; Visit Provider Family Medicine
DX: M17.11 Unilateral primary osteoarthritis, right knee (principal)
CPT/HCPCS: 73564

== ENCOUNTER → 2019-09-05 15:41 | Outpatient (CLI) | payer OTHER, SELFPAY ==
[2019-08-09 14:33] VITALS: BMI 27.3
[2019-09-05 17:41] LABS: Anion Gap 6 (5-15); BUN 18 mg/dL (7-18); BUN/Creat Ratio 19.5 RATIO (10-20); Chloride 103 mmol/L (98-107); Cholesterol 176 mg/dL (200); Creatinine, Serum 0.92 mg/dL (0.70-1.30); EST Glomerular Filtration Rate 88 mL/min (>60); Est Glom Filt Rate - Afr Amer 106 mL/min (>60); Glucose 212 mg/dL (74-106); High Density Lipoprotein 51 mg/dL; Sodium Level 138 mmol/L (136-145); Triglycerides 186 mg/dL; Very Low Density Lipoprotein 37 mg/dL (5-40)
== END ==
PROVIDERS: PCP Family Medicine; Referring Provider Family Medicine; Visit Provider Family Medicine
DX: E11.9 Type 2 diabetes mellitus without complications (principal)
CPT/HCPCS: 36415; 80048; 80061

== ENCOUNTER → 2020-03-13 14:21 | Outpatient (CLI) | payer OTHER, SELFPAY ==
[2019-08-09 14:33] VITALS: BMI 27.3
[2020-03-13 18:16] LABS: Anion Gap 7 (5-15); BUN 14 mg/dL (7-18); BUN/Creat Ratio 19.2 RATIO (10-20); Calcium,Total 8.6 mg/dL (8.5-10.1); Chloride 104 mmol/L (98-107); Creatinine, Serum 0.73 mg/dL (0.70-1.30); EST Glomerular Filtration Rate 115 mL/min (>60); Est Glom Filt Rate - Afr Amer 139 mL/min (>60); Glucose 46 mg/dL (74-106); Potassium 3.9 mmol/L (3.5-5.1); Sodium Level 138 mmol/L (136-145)
== END ==
PROVIDERS: PCP Family Medicine; Referring Provider Family Medicine; Visit Provider Family Medicine
DX: E11.9 Type 2 diabetes mellitus without complications (principal)
CPT/HCPCS: 36415; 80048

== ENCOUNTER → 2020-05-08 16:20 | Outpatient (CLI) | payer OTHER, SELFPAY ==
[2020-05-08 15:23] VITALS: BMI 28.8
[2020-05-08 17:24] LABS: Absolute Lymphocyte Count 2.48 X10^3/uL (0.83-4.51); Absolute Neutrophil Count 5.2 X10^3/uL (2.0-7.7); Basophil# 0.07 X10^3/uL; Basophil% 0.8 % (0-1); Eosinophil# 0.17 X10^3/uL; Eosinophils% 1.9 % (0-5); Hematocrit 53.8 % (40-54); Hemoglobin 17.3 g/dL (13.0-16.5); Lymphocyte # 2.48 X10^3/ul (4.0); Lymphocyte % 27.8 % (19-41); Mean Corp Hgb Conc 32.2 g/dL (32-36); Mean Corpuscular Hgb 33.1 pg (27.0-32.0); Mean Corpuscular Volume 103.1 fL (80-94); Mean Platelet Vol. 9.2 fl (6.2-12.0); Monocyte# 0.94 X10^3/uL; Monocyte% 10.5 % (0-10); NRBC Flagged by Analyzer 0 % (0-5); Neutrophil # 5.21 X10^3/uL (2.7-7.7); Neutrophil % 58.3 % (47-70); Platelet Count 267 K/mm3 (150-450); RBC Distribution Width CV 13.5 % (11.6-14.6); RBC Distribution Width SD 52.2 fl (35.1-43.9); Red Blood Count 5.22 M/mm3 (4.6-6.2); White Blood Count 8.9 K/mm3 (4.4-11.0)
[2020-05-08 17:56] LABS: Anion Gap 8 (5-15); BUN 21 mg/dL (7-18); BUN/Creat Ratio 27.4 RATIO (10-20); Calcium,Total 9.7 mg/dL (8.5-10.1); Chloride 107 mmol/L (98-107); Creatinine, Serum 0.77 mg/dL (0.70-1.30); EST Glomerular Filtration Rate 108 mL/min (>60); Est Glom Filt Rate - Afr Amer 131 mL/min (>60); Glucose 153 mg/dL (74-106); Potassium 4.4 mmol/L (3.5-5.1); Sodium Level 139 mmol/L (136-145)
== END ==
PROVIDERS: PCP Family Medicine; Referring Provider Physician Assistant Medical; Visit Provider Physician Assistant Medical
DX: I48.0 Paroxysmal atrial fibrillation (principal)
CPT/HCPCS: 36415; 80048; 83735; 84443; 85025

== ENCOUNTER 2020-05-26 11:07 | Day surgery (SDC) | payer OTHER, SELFPAY ==
[2020-05-08 15:23] VITALS: BMI 28.8
[2020-05-23 09:14] VITALS: BMI 28.8
--- NOTE | 2020-05-26 09:00 | HP_ITS ---
HPI HPI History of Present Illness Surgical H&P: Yes Details: This is a 64-year-old gentleman that presents here today for a cardiovascular follow-up. He has a history of atrial fibrillation with RVR in October 2017 and a new onset of elevated glucose at that time. At the time of presentation he underwent a ASHIA that demonstrated a left atrial thrombus he was not cardioverted as an inpatient was then cardioverted as an outpatient. EKG today demonstrates atrial flutter with a heart rate of 132. Patient is not aware of his elevated heart rate. He does not have any chest pain. He does not have any worsening shortness of breath. He does not have any lightheadedness, dizziness. He does not have any lower extremity edema. He feels that his activity level is good for his age. Intake Vital Signs 05/08/20 Height 5 ft 10 in 05/08/20 Weight: 201 lb 05/08/20 BP 115/83 H 05/08/20 Blood Pressure Location Lt brachial 05/08/20 Position Sitting 05/08/20 Respiration 18 05/08/20 Pulse 128 H 05/08/20 Pulse Source Monitor 05/08/20 Pulse Oximetry (%) 95 Intake Visit Reasons: 9 M Audio Director Required: No Accompanied by: None Is patient in pain?: No Allergies No Known Allergies Allergy (Verified 05/08/20 15:21) Medications alcohol swabs See Rx Instructions TOPICAL .COMPLEX #200 ea 11/30/17 [Rx Confirmed 05/08/20] blood sugar diagnostic See Dose Instructions .ROUTE .MEDSUPPLY #100 ea 11/30/17 [Rx Confirmed 05/08/20] lancets 33 gauge See Dose Instructions .ROUTE .MEDSUPPLY #100 ea 11/30/17 [Rx Confirmed 05/08/20] metformin 500 mg tablet 1,000 mg PO BIDCM tab 07/06/18 [History Confirmed 05/08/20] insulin aspart U-100 100 unit/mL (3 mL) subcutaneous pen 3 unit SC TID ml 07/20/18 [History Confirmed 05/08/20] insulin detemir U-100 100 unit/mL (3 mL) subcutaneous pen 10 unit SC BID 07/20/18 [History Confirmed 05/08/20] empagliflozin 10 mg tablet PO 30 Days #30 tab 10/04/18 [History Confirmed 05/08/20] apixaban 5 mg tablet 5 mg PO BID #180 tab 08/09/19 [Rx Confirmed 05/08/20] losartan 50 mg tablet 50 mg PO DAILY #90 tab 08/09/19 [Rx Confirmed 05/08/20] metoprolol tartrate 100 mg tablet 100 mg PO BID #180 tab 08/09/19 [Rx Confirmed 05/08/20] diltiazem HCl 120 mg capsule,24 hr,extended release 120 mg PO BID #60 cap 05/08/20 [Rx Confirmed 05/08/20] [facility] Medical History Essential (primary) hypertension (Chronic) Paroxysmal atrial fibrillation (Chronic) Hypersomnia, unspecified (Chronic) Uncontrolled type 2 diabetes mellitus (Chronic) Atrial flutter with rapid ventricular response (Resolved) Non-ischemic cardiomyopathy (Resolved) Surgical History History of cardioversion (Resolved 12/2017) Family History Mother CVA (cerebral vascular accident) Brother CAD (coronary artery disease) Social History (Updated 05/08/20 @ 16:22 by Nicci MORTON, PA) Smoking Status: Current every day smoker alcohol intake: current substance use type: does not use diet: diabetic caffeine: No what type of physical activity do you participate in: walking frequency: daily ROS Const Const: Negative for fatigue, weakness, fever(s) or headache(s) Eyes Eyes: Negative for blind spots, loss of peripheral vision or transient loss of vision ENT ENT: Negative for headache(s), dizziness, tinnitus or Nosebleed/epistaxis Cardio Chest Pain: No Palpitations: No Edema: None Muscle aches with walking: None Resp Respiratory: Negative for SOB with activity, SOB at rest, SOB orthopnea\SOB lying down or Cough GI GI: Negative nausea, vomiting, heartburn or vomiting blood/hematemesis : Negative for hematuria Musc Musc: Negative for muscle aches/ myalgia Neuro Neuro: Negative for dizziness, lightheadedness, near syncope, syncope, orthostatic symptoms, headache(s) or weakness Prasad Hematologic/Lymphatic: Negative for easy bleeding Endo Endo: Negative for fatigue Cardiology Exam Const Appearance: cooperative, no acute distress and well developed Orientation: alert, awake and oriented x3 Head Head: normocephalic and atraumatic Mouth: moist mucous membranes Eyes General: appearance normal, both eyes and all related structures Conjunctivae: conjunctivae normal Pupils: PERRL EOM: EOM intact bilaterally Neck Neck: normal visual inspection, no lymphadenopathy and no JVD Carotids: Negative bruit Neck Mass: Negative Neck mass Chest Chest inspection: normal inspection of the chest and symmetric chest movement Auscultation: Bilateral: Clear to Auscultation Cardio Palpation: normal PMI Rate: tachycardic Rhythm: irregularly irregular Heart sounds: S1 normal and S2 normal; negative rub, gallop or murmur GI GI: normal to inspection, soft, no hepatosplenomegaly and bowel sounds present; negative tender Neuro General: alert, awake, oriented x3, CN's II-XI intact bilaterally and moves all extremities Extremities Pulses: Normal: Right Posterior Tibial Pulse, Left Posterior Tibial Pulse, Right Radial Pulse, Left Radial Pulse Lower Extremity Edema: None: Bilateral Psych Psychological: normal affect Assessment & Plan Problems 1. Atrial flutter with rapid ventricular response I48.92 Plan Patient has returned to atrial flutter with RVR. He will require a cardioversion. He tells me that he has not stopped his anticoagulation. This will be scheduled in the near future. In the meantime would like to get his heart rate under better control. He will hold his losartan so that I can add diltiazem for better rate control. This was reviewed with Dr. Johns and Dr. Rao's absence. Patient Instructions Stop your losartan, I am going to start your on Diltiazem 120 mg BID. This will help slow your rate but is also a BP pill. I will call you with the date and time of your cardioversion. 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 Orders Orders: 12 Lead EKG performed by BMS Today I48.0 Basic Metabolic Profile (BMP) Today I48.0 Magnesium Today I48.0 Thyroid Stim Hormone (TSH) Today I48.0 CBC W/Diff, Automated Today I48.0 Medications New: diltiazem HCl ER 120 mg PO BID 60 caps 3RF On Hold: losartan Hold Comment: will decide when to restart this after your cardioversion 50 mg PO DAILY 90 tabs 4RF Plan Detail Follow Up 1 Month (MMM) Coding Level of Care Code Off vis,est,level 4 Diagnoses Atrial flutter with rapid ventricular response I48.92 Coding Level of Care Code Off vis,est,level 4 Diagnoses Atrial flutter with rapid ventricular response I48.92 Supplemental Info Supplemental Information Echocardiogram 07/2018: Normal LV size. Left ventricular systolic function is normal. The estimated ejection fraction is 65 %. Stage 1 diastolic dysfunction. No regional wall motion abnormalities noted. Trivial eccentric mitral valve insufficiency. Pulmonary artery systolic pressure is 29 mmHg. Compared to previous study, the left ventricular systolic function has improved.. Labs LDL Cholesterol 88 mg/dL (0-130) 09/05/19 HDL Cholesterol 51 mg/dL (40-) 09/05/19 Triglycerides 186 mg/dL (-199) 09/05/19 VLDL Cholesterol 37 mg/dL (5-40) 09/05/19 Diagnostics Electrocardiogram 05/08/20 Echocardiogram 08/04/18 COVID (Procedure Consent) Procedure Criteria Procedure Criteria: Yes Elective The surgeon/proceduralist and patient have discussed in detail the risk of exposure to and/or potential harm posed by the COVID-19 virus with having a surgery/procedure at this time versus the risk of? delaying the surgery/procedure. It is not possible to know either the risk of delaying the surgery or procedure or chance of getting an infection with perfect accuracy, but a joint decision was made between the patient and the surgeon/proceduralist ?to proceed at this time with the scheduled surgery/procedure as indicated on the consent form.
--- NOTE | 2020-05-26 12:29 | CARDIOVERS ---
Cardioversion Cardioversion: DC cardioversion. 64-year-old man with a history of atrial flutter. The patient was brought to the cardiac catheterization lab in the postabsorptive nonsedated state. The patient was seen by Dr. Pollock of the critical care division. Informed consent was obtained. Anterior posterior pads were applied. It was confirmed that the patient had been on anticoagulation for an appropriate amount of time. EKG revealed atrial flutter with an uncontrolled ventricular response rate. The patient was administered 80 mg of intravenous propofol. 200 J of DC cardioversion energy were applied with prompt reversal to sinus rhythm. Patient tolerated the procedure well. Conclusion: Successful DC cardioversion from atrial flutter to sinus rhythm. Recommend metoprolol 100 mg once a day. Continue anticoagulation.
--- NOTE | 2020-05-26 12:51 | PRO.PCM_ITS ---
Problem List (1) Essential (primary) hypertension Status: Chronic (2) Paroxysmal atrial fibrillation Status: Chronic Procedure Report Date of Procedure: 05/26/20 - Conscious sedation CONSCIOUS SEDATION REPORT BRIEF HISTORY OF PRESENT ILLNESS: The patient is a 64-year-old male who presented to [facility] for an elective outpatient cardioversion due to underlying atrial fibrillation. The patient reports no PO intake since midnight. The patient does not have a history of obstructive sleep apnea. The patient reports a history of smoking and COPD. The patient denies any recent constitutional symptoms such as fevers, chills, nausea or vomiting. The patient denies previous anesthetic complications. Patient's last EF was 65% and the patient reports taking Eliquis on the day of the procedure. PHYSICAL EXAMINATION: VITAL SIGNS: Reviewed and were acceptable. GENERAL: The patient is a male, in no apparent distress, speaking in full sentences. HEENT: Normocephalic, atraumatic. Mucous membranes are moist and pink. Good mouth opening noted. Trachea is midline. Good neck mobility. MP IV CHEST: S1, S2 irregularly irregular. No murmurs, rubs or gallops were noted. LUNGS: Clear to auscultation bilaterally without appreciable wheezes, rales or rhonchi. ABDOMEN: Soft, nontender, nondistended. Positive bowel sounds. EXTREMITIES: There is no clubbing, cyanosis or edema. ASA Class: II DESCRIPTION OF PROCEDURE: After confirmation of informed consent, the patient's anesthesia plan was reviewed in detail. Propofol was chosen. Risks and benefits were reviewed and the patient agreed to proceed. At 12:19 PM, the patient was given 40 mg of propofol. The patient required a total of 80 mg of propofol throughout the procedure to achieve appropriate sedation. The patient achieved an appropriate level of sedation and received 1 attempt synchronized cardioversion, at [address] Rao at the bedside. This was successful in achieving normal sinus rhythm. The patient was monitored until 12:31 PM, at which time the patient reached their baseline mental status and function. The patient tolerated the procedure well. COMPLICATIONS: None ESTIMATED BLOOD LOSS: None RECOMMENDATIONS: Okay to recover in usual fashion. [id number]: Other Procedure See Report - [id number] - 12 minutes
== END 2020-05-26 13:30 | disposition home or self-care (01) ==
LOC: CLSP 11:08
PROVIDERS: PCP Family Medicine; Referring Provider Internal Medicine Cardiovascular Disease; Visit Provider Internal Medicine Cardiovascular Disease
DX: I48.0 Paroxysmal atrial fibrillation (principal); I10 Essential (primary) hypertension; F17.200 Nicotine dependence, unspecified, uncomplicated; J44.9 Chronic obstructive pulmonary disease, unspecified; Z79.01 Long term (current) use of anticoagulants; Z79.899 Other long term (current) drug therapy; Z79.4 Long term (current) use of insulin; E11.9 Type 2 diabetes mellitus without complications; I48.92 Unspecified atrial flutter
CPT/HCPCS: 92960; 93005; J7040

== ENCOUNTER → 2020-08-01 10:06 | Outpatient (CLI) | payer OTHER, SELFPAY ==
[2020-06-13 14:08] VITALS: BMI 28.7
[2020-08-01 11:22] LABS: Hematocrit 50.5 % (40-54); Hemoglobin 16.9 g/dL (13.0-16.5)
[2020-08-01 12:17] LABS: Free T3 2.2 pg/mL (2.18-3.98); T4 Free Direct 1.28 ng/dL (0.76-1.46); Thyroid Stim Hormone (TSH) 3.25 uIU/mL (0.358-3.74)
== END ==
PROVIDERS: PCP Family Medicine; Referring Provider Physician Assistant Medical; Visit Provider Physician Assistant Medical
DX: I48.0 Paroxysmal atrial fibrillation (principal); I10 Essential (primary) hypertension
CPT/HCPCS: 36415; 84439; 84443; 84481; 85014; 85018

== ENCOUNTER 2020-09-10 10:32 | Emergency (ER) | payer OTHER, SELFPAY ==
[2020-06-13 14:08] VITALS: BMI 28.7
[2020-09-10] VITALS (8 sets, daily range): BP systolic 91–174; BP diastolic 71–109; PULSE 82–145; RESP 12–22; TEMP 36; O2SAT 93–99; BMI 28.7
--- NOTE | 2020-09-10 10:44 | EKG12_ITS ---
Test Reason : CARDIOVERION Blood Pressure : / mmHG Vent. Rate : 082 BPM Atrial Rate : 082 BPM P-R Int : 182 ms QRS Dur : 092 ms QT Int : 386 ms P-R-T Axes : 051 057 045 degrees QTc Int : 450 ms Normal sinus rhythm with sinus arrhythmia Normal ECG Confirmed by KEEGAN KNIGHT, KIM ([id number]), proposal editor YAAKOV KENNEY ([id number]) on 09/15/2020 10:35:38 AM Referred By: RAMIRO Confirmed By:KIM ALLISON MD
--- NOTE | 2020-09-10 10:46 | ED.VIS.GEN ---
History of Present Illness Chief Complaint: Palpitations Informant: Patient, PCP Onset: Today Context: Sudden Onset Timing: Continuous Quality: Fast heart rate Location: Primary care physician's office Current Severity: Moderate Maximum Severity: Moderate Worsened by: Possibly levothyroxine Relieved by: Nothing Associated Symptoms: Asymptomatic Narrative: Patient is an elderly male with history of atrial fibrillation and atrial flutter who has had cardioversion x2. His financial management consultant Dr. Lenny Rao. He was at his primary care physician's office. Initial vital signs revealed a heart rate of 71. During examination Dr. Hammer noted his heart rate became rapid and greater than 140. EKG revealed atrial fibrillation. He was sent to the emergency department. Presently has no complaints. He was recently started on levothyroxine. He was euthyroid according to Dr. Hammer. He is on Eliquis. He denies black or maroon stool. He denies bleeding from his gums or blood in his urine. He denies bruising easily. He has not had thing to eat or drink since 0800. 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 Status: Acute (2) Essential (primary) hypertension Status: Chronic (3) Paroxysmal atrial fibrillation Status: Chronic (4) Euthyroid Status: Acute Past Medical History - Allergies and Home Meds Allergies/Adverse Reactions: Allergies No Known Allergies Allergy (Verified 09/10/20 10:33) Primary Care Physician: Lenny Rao MD [STAFF PHYSICIAN] - 5-7 Days Lanre Hammer MD [Primary Care Provider] - Prior records reviewed: Yes Surgical History: no surgical history Lives: Alone Smoking Status: Current every day smoker Alcohol: None Drugs: None - Family History Maternal Family History: Family History (Last Reviewed 06/13/20 @ 16:07 by Nicci MORTON, PA) Mother CVA (cerebral vascular accident) Brother CAD (coronary artery disease) Family History: Reports: No pertinent history Paternal Family History: Family History (Last Reviewed 06/13/20 @ 16:07 by Nicci MORTON, PA) Mother CVA (cerebral vascular accident) Brother CAD (coronary artery disease) Family History: Reports: No pertinent history Review of Systems General: Denies: Chills, Fever, Malaise, Subjective Eyes: Denies: Visual changes - bilaterally, Blurred Vision - bilaterally ENT: Denies: Rhinorrhea, Sore throat Cardiovascular: Denies: Chest pain, Palpitations Respiratory: Denies: Dyspnea, Cough, Sputum, Dyspnea on exertion, Orthopnea, Paroxysmal nocturnal dyspnea Gastrointestinal: Denies: Abdominal pain, Nausea, Vomiting, Diarrhea Genitourinary: Denies: Dysuria, Hematuria, Frequency Musculoskeletal: Denies: Myalgias, Arthralgias, Neck pain, Back pain, Swelling, Extremity Pain Skin: Denies: Rash Neurological: Denies: Headache, Parasthesia Psych: Denies: Depression, Anxiety, Suicidal thoughts Endocrine: Denies: Polyuria, Polydipsia Hematologic: Reports: Easy bruising. Denies: Easy bleeding Physical Exam Vital Signs/Narrative: Vital Signs Temp Pulse Resp BP Pulse Ox 09/10/20 10:33 96.8 F L 145 H 17 174/109 H 98 Inital Vital Signs reviewed: Yes General: Well nourished, Well developed, No Acute Distress Head: Normocephalic, Atraumatic Eyes: Perrl, EOMI ENT: Moist mucous membranes, No rhinorrhea Neck: Supple, Nontender Cardiovascular: Regular rhythm, No murmurs, Normal S1, Normal S2, Tachycardia Respiratory: No distress, CTA bilaterally, Chest nontender Abdomen: Soft, Nontender, Nondistended, Normal bowel sounds Back: Nontender, Normal Inspection. Negative for: CVA tenderness Extremities: Nontender, No edema Skin: Normal color, No rash Neurological: Alert, Oriented x3, Cranial nerves II-XII grossly intact, Normal Strength, Normal Sensation Psychological: Normal affect, Normal Mood Diagnostic/Tx/Re-eval Laboratory Results 09/10/20 09/10/20 10:50 10:50 WBC 9.1 RBC 5.19 Hgb 17.2 H Hct 51.2 MCV 98.7 H MCH 33.1 H MCHC 33.6 RDW Std Deviation 51.8 H RDW Coeff of Jhon 14.2 Plt Count 265 MPV 8.8 Sodium 137 Potassium 4.0 Chloride 104 Carbon Dioxide 23.0 Anion Gap 10 BUN 11 Creatinine 0.90 Estim Creat Clear Calc 85.62 Est GFR (MDRD) Af Amer 109 Est GFR (MDRD) Non-Af 90 BUN/Creatinine Ratio 12.2 Glucose 157 H Calcium 8.8 TSH 4.78 H Sh is high. The recent initiation of L-thyroxine is most likely not the cause. Hemoglobin is elevated 17.2. Patient has secondary polycythemia vera. Electrolytes and renal function is normal. Glucose is elevated 157. - Rhythm Strip Rhythm Strip: Complex tachycardia suspect atrial flutter with a 2-1 block Ectopy: None - EKG Initial EKG Interpretation: - - EKG reveals atrial flutter with 2-1 block. There is an ectopic beat noted. Varina to the right. MI interval is 112 ms. QT duration is [address] changes that is probably related to his rates. Follow-up EKG Interpretation: Sinus Rhythm - Sinus rhythm with a ventricular rate 82. MI interval 182 ms. QRS duration 92 ms. QT duration 386 ms. Varina is normal. There is no ST-T wave changes that were noted on initial EKG. Suspect this was due to demand/rate. Procedures Procedure(s): 1. Patient was consented for deep sedation using propofol since he has no contraindication. 2. Patient was consented for cardioversion. Patient was informed of benefits of deep sedation with propofol. Patient denies allergy to soy products or egg products. Patient reports he has been cardioverted in the past had no issues with sedation using propofol. Patient was given opportunity ask questions regarding use of propofol and cardioversion. He responded I have been shocked twice . Timeout was performed prior to deep sedation and cardioversion. Start time: 1020. End time: 1026. Patient required 180 mg of propofol. He initially was given 80 mg followed by 50 mg x 2. Once desired effect was achieved. He was successfully cardioverted using 100 J biphasic mode. Monitor reveals a sinus rhythm with a ventricular rate of 60-65. Monitor prior cardioversion revealed atrial flutter 2-1 block with a rate of 144. ED Disposition - Plan for ED Patient: Disposition: Home or Assisted Living Diagnosis: Atrial flutter by electrocardiogram Instructions: ED Atrial Flutter Referrals: Lanre Hammer MD [Primary Care Provider] - Lenny Rao MD [STAFF PHYSICIAN] - 5-7 Days
[2020-09-10 11:01] LABS: Hematocrit 51.2 % (40-54); Hemoglobin 17.2 g/dL (13.0-16.5); Mean Corp Hgb Conc 33.6 g/dL (32-36); Mean Corpuscular Hgb 33.1 pg (27.0-32.0); Mean Corpuscular Volume 98.7 fL (80-94); Mean Platelet Vol. 8.8 fl (6.2-12.0); Platelet Count 265 K/mm3 (150-450); RBC Distribution Width CV 14.2 % (11.6-14.6); RBC Distribution Width SD 51.8 fl (35.1-43.9); Red Blood Count 5.19 M/mm3 (4.6-6.2); White Blood Count 9.1 K/mm3 (4.4-11.0)
[2020-09-10 11:24] LABS: Anion Gap 10 (5-15); BUN 11 mg/dL (7-18); BUN/Creat Ratio 12.2 RATIO (10-20); Calcium,Total 8.8 mg/dL (8.5-10.1); Chloride 104 mmol/L (98-107); EST Glomerular Filtration Rate 90 mL/min (>60); Est Glom Filt Rate - Afr Amer 109 mL/min (>60); Estimated Creatinine Clearance 85.62 ml/min; Glucose 157 mg/dL (74-106); Sodium Level 137 mmol/L (136-145); Thyroid Stim Hormone (TSH) 4.78 uIU/mL (0.358-3.74)
--- NOTE | 2020-09-10 11:24 | EKG12_ITS ---
Test Reason : A FIB Blood Pressure : / mmHG Vent. Rate : 145 BPM Atrial Rate : 136 BPM P-R Int : 000 ms QRS Dur : 112 ms QT Int : 360 ms P-R-T Axes : 000 100 -08 degrees QTc Int : 559 ms Atrial flutter with 2 to 1 block Rightward axis Inferior infarct , age undetermined ST & T wave abnormality, consider anterolateral ischemia Abnormal ECG Confirmed by KEEGAN KNIGHT, KIM ([id number]), editorial clerk YAAKOV KENNEY ([id number]) on 09/15/2020 10:37:19 AM Referred By: COLE Confirmed By:KIM ALLISON MD
[2020-09-10] MEDS: Propofol 200 MG/20 ML Vial IV BOLUS (11:28)
== END 2020-09-10 12:32 | disposition home or self-care (01) ==
LOC: ED 11:55
PROVIDERS: Emergency Provider Emergency Medicine; PCP Family Medicine
DX: I48.92 Unspecified atrial flutter (principal); F17.200 Nicotine dependence, unspecified, uncomplicated; I48.0 Paroxysmal atrial fibrillation; Z79.01 Long term (current) use of anticoagulants
CPT/HCPCS: 80048; 84443; 85027; 92960; 93005; 96374; 99284

== ENCOUNTER → 2021-01-20 15:59 | Outpatient (CLI) | payer MEDICARE, SELFPAY ==
[2021-01-20 15:15] VITALS: BMI 27.6
[2021-01-20 17:39] LABS: Anion Gap 11 (5-15); BUN 13 mg/dL (7-18); BUN/Creat Ratio 17.9 RATIO (10-20); Calcium,Total 8.8 mg/dL (8.5-10.1); Chloride 104 mmol/L (98-107); Creatinine, Serum 0.72 mg/dL (0.70-1.30); EST Glomerular Filtration Rate 115 mL/min (>60); Est Glom Filt Rate - Afr Amer 140 mL/min (>60); Glucose 60 mg/dL (74-106); Potassium 3.7 mmol/L (3.5-5.1); Sodium Level 139 mmol/L (136-145); T4 Total, Thyroxin 10.1 ug/dL (4.5-12.1); Thyroid Stim Hormone (TSH) 4.74 uIU/mL (0.358-3.74)
== END ==
PROVIDERS: PCP Family Medicine; Referring Provider Internal Medicine Cardiovascular Disease; Visit Provider Internal Medicine Cardiovascular Disease
DX: I10 Essential (primary) hypertension (principal); I48.92 Unspecified atrial flutter; E03.9 Hypothyroidism, unspecified
CPT/HCPCS: 36415; 80048; 84436; 84443

== ENCOUNTER 2021-01-23 10:19 | Day surgery (SDC) | payer MEDICARE, SELFPAY ==
[2021-01-20 15:15] VITALS: BMI 27.6
--- NOTE | 2021-01-21 13:19 | RAD_ITS ---
STUDY: X-RAY CHEST REASON FOR EXAM: Male, 65 years old. sob TECHNIQUE: PA and lateral views of the chest. COMPARISON: 01/09/2018 FINDINGS: The lungs are clear and expanded. There is no demonstrated pleural abnormality. Normal size heart. Normal mediastinum and makenzie. Normal visualized pulmonary arteries. Normal visualized aortic arch and descending thoracic aorta. Normal visualized thoracic spine. Normal visualized ribs, clavicles, and shoulders. There is no demonstrated abnormality of the visualized soft tissue structures of the upper abdomen. RAD/Chest PA and Lateral IMPRESSION: Normal x-ray examination of the chest. Electronically Signed: Sanjiv Mendoza MD at 14:25 EDT Tel , Service support ,
[2021-01-22 11:29] VITALS: BMI 27.6
--- NOTE | 2021-01-23 12:53 | PRO.PCM_ITS ---
Assessment & Plan Assessment/Plan (1) Paroxysmal atrial flutter: Procedure Report Date of Procedure: 01/23/21 DC cardioversion. 65-year-old man with a history of atrial flutter recurrent. Unable to be rate controlled. The patient has been on therapeutic anticoagulation has not been co mpliant with his medications. The patient was brought to the cardiac catheterization lab in the postabsorptive nonsedated state. The patient was seen by Dr. Pleitez of the critical care division. The patient was then consented for the procedure. Anterior-posterior pads were applied. 60 mg of intravenous propofol were administered 200 J of synchronized DC cardioversion energy were then applied with prompt reversal to sinus rhythm. Patient tolerated the procedure well. Conclusion: Successful DC cardioversion from atrial flutter to sinus rhythm. Discontinue diltiazem. Continue beta-maciej Continue anticoagulation Follow-up as per office protocol.
--- NOTE | 2021-01-23 13:11 | PRO.PCM_ITS ---
Procedure Report Date of Procedure: 01/23/21 CONSCIOUS SEDATION REPORT DATE OF SERVICE: January 23, 2021 BRIEF HISTORY OF PRESENT ILLNESS: The patient is a 65-year-old male who presented to [facility] for an elective outpatient cardioversion due to underlying atrial fibrillation. The patient did undergo a prior cardioversion in May 2020, during which time, propofol was utilized for sedation. The patient denies any prior anesthetic complications. He does have a history of smoking and COPD. He has never been diagnosed with obstructive sleep apnea. The patient is systemically anticoagulated on Eliquis. His last surface echocardiogram revealed an ejection fraction of 65%. PHYSICAL EXAMINATION: VITAL SIGNS: Reviewed and were acceptable. GENERAL: The patient is a male, in no apparent distress, speaking in full sentences. HEENT: Normocephalic, atraumatic. Mucous membranes are moist and pink. Good mouth opening noted. Trachea is midline. CHEST: S1, S2 irregularly irregular. No murmurs, rubs or gallops were noted. LUNGS: Clear to auscultation bilaterally without appreciable wheezes, rales or rhonchi. ABDOMEN: Soft, nontender, nondistended. Positive bowel sounds. EXTREMITIES: There is no clubbing, cyanosis or edema. ASA Class: II DESCRIPTION OF PROCEDURE: After confirmation of informed consent, the patient's anesthesia plan was reviewed in detail. Propofol was chosen. Risks and benefits were reviewed and the patient agreed to proceed. At 1245, the patient was given 60 mg of propofol. The patient achieved an appropriate level of sedation and was given a 200 joule synchronized cardioversion by Dr. Rao at the bedside. This was successful in achieving normal sinus rhythm. The patient was monitored until 1257, at which time he reached his baseline mental status and function. The patient tolerated the procedure well. COMPLICATIONS: None ESTIMATED BLOOD LOSS: None RECOMMENDATIONS: Okay to recover in usual fashion. Procedures Pulmonary CF Procedures Pulmonary: 66302 Con Sedation
== END 2021-01-23 13:50 | disposition home or self-care (01) ==
LOC: CLSP 10:20
PROVIDERS: PCP Family Medicine; Referring Provider Internal Medicine Cardiovascular Disease; Visit Provider Internal Medicine Cardiovascular Disease
DX: I48.92 Unspecified atrial flutter (principal); I48.91 Unspecified atrial fibrillation; E11.9 Type 2 diabetes mellitus without complications; F17.200 Nicotine dependence, unspecified, uncomplicated; I10 Essential (primary) hypertension; E03.9 Hypothyroidism, unspecified; I42.8 Other cardiomyopathies; Z68.27 Body mass index [BMI] 27.0-27.9, adult; Z79.899 Other long term (current) drug therapy
CPT/HCPCS: 71046; 92960; 93005; J7040